=== PATIENT | female | born 1985 | race Caucasian/White ===

== ENCOUNTER → 2018-04-05 10:14 | Outpatient (CLI) | payer OTHER, SELFPAY ==
[2018-04-10 12:44] LABS: HPV HC, High Risk Negative (Negative)
== END ==
PROVIDERS: Visit Provider Obstetrics & Gynecology
DX: Z12.4 Encounter for screening for malignant neoplasm of cervix (principal)
CPT/HCPCS: 87624; 88175; G0145

== ENCOUNTER 2018-07-07 02:01 | Emergency (ER) | payer OTHER, SELFPAY ==
[2018-07-07 02:02] VITALS: BP 133/79; PULSE 99; RESP 16; TEMP 36.9; O2SAT 100; BMI 23.8
--- NOTE | 2018-07-07 02:14 | ED.VISSUMM ---
- ER Visit Summary Date of Service: 07/07/18 Chief Complaint: Abdominal pain with nausea, vomiting and diarrhea History of Present Illness: The patient is a 32 F history of migraines and kidney stones. Prior C-sections. Patient states she is had diarrhea for a week. Around 4:00 Sunday afternoon started having lower abdominal cramping primarily right-sided and right flank with associated nausea and vomiting. No dysuria. No hematuria. She denies any vaginal bleeding or discharge. Unsure of her last menstrual period since she is continuously on control pills due to issues with migraine headaches associated with her menstrual periods. She denies any fever. Prior to arrival she was treated with a liter normal saline for dehydration. Her significant other is a local examination grader. Physical Examination: Young female. No acute distress. Vital signs are stable. She is afebrile. She does not look septic or toxic. H EENT exam unremarkable. Neck nontender. Lungs clear to auscultation bilaterally. Heart regular rhythm no murmur. Abdomen is soft nondistended normal bowel sounds no peritoneal signs. She is mildly tender in the right lower quadrant. No hernias or masses. No signs of obstruction. Tenderness is below McBurney's point. She is moving all 4 extremities. Calves are nontender without edema. Back is not reproducibly tender. Neurologically she is awake alert with no focal motor deficits. Test Results: CBC shows a slightly elevated white count of 12.9. Normal hemoglobin. Letter lites unremarkable normal creatinine and gap. UA normal no signs of infection. Serum test negative. CT abdomen and pelvis with IV contrast was read as normal. Read by the radiologist reviewed by me. No kidney stones seen. The appendix was seen and was normal. Emergency Department Course and Treatment: Patient treated with a liter normal saline and IV Phenergan for her nausea. Multiple repeat exams patient is doing well. She was treated with IV Toradol for her discomfort. At 040 7 AM she is doing well her abdomen is benign. We went over all test results and they are comfortable being discharged home. Treatment Plan: Fluids and rest. Tylenol and Motrin for pain. Zofran as needed for nausea. Imodium for the diarrhea. Follow-up if not improving. Disposition: Discharge Impression: Acute abdominal pain of uncertain etiology Diarrhea This note was generated with [employer] dictation software. It may contain incorrect words, spelling, and punctuation that were not noted in review of the chart prior to signing ED Disposition - Plan for ED Patient: Referrals: [facility],Out of [NON-STAFF] -
[2018-07-07] MEDS: proMETHazine 25 MG/ML Syringe 12.5 MG IV (02:27)
[2018-07-07] MEDS: 0.9% Normal Saline 1,000 ML 999 ML IV (02:27)
[2018-07-07 02:33] LABS: Bacteria 0 SEEN /hpf (None Seen); Red Blood Cells-Urine 0 SEEN /hpf (0-5)
[2018-07-07 02:36] LABS: Internal QC Validated? YES +Cl - CLEAR BKGD; Pregnancy, Serum, hCG Quali. NEGATIVE Negative
[2018-07-07 02:37] LABS: Absolute Lymphocyte Count 0.55 X10^3/ul (0.83-4.51); Absolute Neutrophil Count 11.8 X10^3/uL (2.0-7.7); Basophil# 0.01 X10^3/uL; Basophil% 0.1 % (0-1); Eosinophil# 0.02 X10^3/uL; Eosinophils% 0.2 % (0-5); Hematocrit 38.3 % (37-47); Hemoglobin 13.1 g/dl (12.0-15.0); Lymphocyte # 0.55 X10^3/ul (4.0); Lymphocyte % 4.3 % (19-41); Mean Corp Hgb Conc 34.2 g/gl (32-36); Mean Corpuscular Hgb 29.8 pg (27.0-32.0); Mean Corpuscular Volume 87.2 fL (81-99); Mean Platelet Vol. 10.1 fl (6.2-12.0); Monocyte# 0.52 X10^3/uL; Neutrophil # 11.75 X10^3/uL (2.7-7.7); Neutrophil % 91.3 % (47-70); Platelet Count 263 K/mm3 (150-450); RBC Distribution Width CV 14.6 % (11.6-14.6); RBC Distribution Width SD 47.3 fl (35.1-43.9); Red Blood Count 4.39 M/mm3 (4.2-5.4); White Blood Count 12.9 K/mm3 (4.4-11.0)
[2018-07-07 02:40] LABS: Anion Gap 9 (5-15); BUN 17 mg/dL (7-18); BUN/Creat Ratio 17.3 RATIO (10-20); Calcium,Total 8.3 mg/dL (8.5-10.1); Chloride 109 mmol/L (98-107); Creatinine, Serum 0.98 mg/dL (0.55-1.02); EST Glomerular Filtration Rate 69 mL/min (>60); Est Glom Filt Rate - Afr Amer 83 mL/min (>60); Estimated Creatinine Clearance 66.91 ml/min; Glucose 126 mg/dL (74-106); Potassium 3.8 mmol/L (3.5-5.1); Sodium Level 140 mmol/L (136-145)
[2018-07-07 02:41] LABS: Differential Indicated SCAN CRITERIA MET; POSITIVE COUNT NO; POSITIVE DIFFERENTIAL YES; POSITIVE MORPHOLOGY NO
--- NOTE | 2018-07-07 02:47 | CT_ITS ---
STUDY: CT ABDOMEN AND PELVIS WITH CONTRAST REASON FOR EXAM: Female, 32 years old. RIGHT lower quadrant abdominal pain RADIATION DOSAGE (If Supplied By Facility): CTDIvol = ( 9.22 ) mGy, DLP = ( 388.35 ) mGycm TECHNIQUE: Transaxial images were obtained from the dome of the diaphragm to the symphysis pubis without oral contrast. 100 IV Isovue 300 was administered. Sagittal and coronal images were reconstructed. Individualized dose optimization techniques were used for this CT. COMPARISON: None. FINDINGS: The visualized lung bases are unremarkable. The visualized portions of the heart are within normal limits. Normal liver. Normal gallbladder and extrahepatic biliary system. Normal spleen. Normal pancreas. Normal bilateral adrenal glands. Normal right kidney. Normal left kidney. Normal visualized stomach. Normal small intestine. Normal colon. The appendix is visualized and appears normal. Normal abdominal aorta. Normal inferior vena cava. Normal retroperitoneum. Normal urinary bladder. Uterus and ovaries are unremarkable. There is NO ascites or free air, abscess or adenopathy. Normal abdominal wall. Normal osseous structures. CT/Abdomen/Pelvis W IV Cont ONLY IMPRESSION: Normal enhanced CT of the abdomen and pelvis. Electronically Signed: Elliott Gee MD at 4:04 EDT , Service support ,
[2018-07-07 02:48] LABS: Color, Urine Yellow (Yellow); Glucose, Dipstick Normal (Normal); Leukocyte Esterase-Dipstick 25 /ul (Negative); Nitrite-Dipstick Negative (Negative); Occult Blood-Urine Negative /ul (Negative); Protein-Dipstick 15 mg/dl (Negative); Urine Bilirubin Dipstick Negative (Negative); Urine Clarity Clear (Clear); Urine Urobilinogen Normal (Normal)
[2018-07-07 02:51] LABS: Ketone-Dipstick 150 mg/dl (Negative)
[2018-07-07 02:52] LABS: Mucous, Urine 2+ /hpf (<or=2+); Squamous Epithelial Cells - UA 10-25 SEEN /hpf (5-10); White Blood Cells 0-5 SEEN /hpf (0-5)
[2018-07-07 02:54] LABS: Differential Comment SCANNED
[2018-07-07] MEDS: Ketorolac 30 MG/ML Syringe IV (03:25)
--- NOTE | 2018-07-07 04:11 | ED.DEP ---
ED Disposition - Plan for ED Patient: Disposition: Home or Assisted Living Instructions: ED Abdominal Pain Unkn Cause Prescriptions: Ondansetron [Zofran Odt] 4 mg PO Q8H PRN PRN #7 tab PRN Reason: Nausea Referrals: [facility],Out of [NON-STAFF] - 3-5 Days if not improving Additional Instructions: Zofran as needed for nausea. Tylenol Motrin for pain. Your labs and CAT scan were unremarkable. Follow-up with your doctor if not improving.
[2018-07-07 04:19] VITALS: BP 96/50; PULSE 89; RESP 16; O2SAT 98
[2018-07-07] MEDS: Ondansetron ODT 4 MG Tablet PO (04:20)
== END 2018-07-07 04:23 | disposition home or self-care (01) ==
PROVIDERS: Emergency Provider Emergency Medicine
DX: R10.31 Right lower quadrant pain (principal); R19.7 Diarrhea, unspecified; R11.2 Nausea with vomiting, unspecified
CPT/HCPCS: 74177; 80048; 81001; 84703; 85025; 96361; 96374; 96375; 99283; J7030; Q9967; A4216

== ENCOUNTER 2018-10-23 19:39 | Emergency (ER) | payer OTHER, SELFPAY ==
[2018-10-23 19:41] VITALS: BP 134/74; PULSE 90; RESP 18; TEMP 36.6; O2SAT 98; BMI 23.8
--- NOTE | 2018-10-23 19:43 | RAD_ITS ---
STUDY: X-RAY - LEFT FOOT CLINICAL: Female, 33 years old. Trauma TECHNIQUE: 3 view(s) of the foot. COMPARISON: None. FINDINGS: Normal talus, calcaneus, and tarsal bones. Normal visualized subtalar, talonavicular, calcaneocuboid, tarsal and tarsometatarsal articulations. There is again noted a nondisplaced Reich fracture of the fifth metatarsal base. Normal metatarsophalangeal joint of the great toe. Normal tibial and fibular sesamoid bones. Normal interphalangeal joint of the great toe. Normal phalanges of the great toe. Normal second through fifth metatarsophalangeal joints. Normal interphalangeal joints and phalanges of the lesser toes. The soft tissue structures are unremarkable. RAD/Foot min 3 Views IMPRESSION: Nondisplaced Reich fracture of the fifth metatarsal base. Electronically Signed: Salazar Philip MD at 20:27 EDT , Service support ,
--- NOTE | 2018-10-23 19:43 | RAD_ITS ---
STUDY: X-RAY - LEFT ANKLE REASON FOR EXAM: Female, 33 years old. Trauma TECHNIQUE: 3 view(s) of the ankle. COMPARISON: None. FINDINGS: Normal visualized distal tibia and fibula. Normal medial and lateral malleoli. Normal tibiotalar articulation and ankle mortise. Normal visualized talus and calcaneus. The visualized subtalar, talonavicular, calcaneocuboid and tarsal articulations are normal. There is a nondisplaced Reich fracture of the fifth metatarsal base. The soft tissue structures are unremarkable. RAD/Ankle min 3 Views IMPRESSION: Nondisplaced Reich fracture of the fifth metatarsal base. The osseous structures and articular surfaces of the left ankle itself appear within normal limits. Electronically Signed: Salazar Philip MD at 20:26 EDT , Service support ,
--- NOTE | 2018-10-23 20:40 | ED.DCSUM_ITS ---
- ER Visit Summary Date of Service: 10/23/18 Chief Complaint: LEft foot injury History of Present Illness: The patient is a 33 F who injured her left lateral foot getting off a horse. Physical Examination: Tender to palpation to left lateral foot. Skin intact. Neurovascular intact distally. Test Results: Reich fracture on x-ray. Emergency Department Course and Treatment: Patient has a fracture on x-ray. Follow-up with podiatry. Rest, ice, elevate. Naproxen. Crutches, boot. Treatment Plan: As above Disposition: Discharge Impression: 1. Left foot Reich fracture This note was generated with [employer] dictation software. It may contain incorrect words, spelling, and punctuation that were not noted in review of the chart prior to signing ED Disposition - Plan for ED Patient: Disposition: Home or Assisted Living Instructions: FRACTURE, Foot Prescriptions: Naproxen [Naprosyn] 500 mg PO BID PRN #20 tab Prescription Printed Referrals: Addy Perez DPM [STAFF PHYSICIAN] -
--- NOTE | 2018-10-23 20:40 | ED.DEP ---
ED Disposition - Plan for ED Patient: Instructions: FRACTURE, Foot Prescriptions: Naproxen [Naprosyn] 500 mg PO BID PRN #20 tab Prescription Printed Referrals: Addy Perez DPM [STAFF PHYSICIAN] -
[2018-10-23] MEDS: Naproxen 500 MG Tablet PO (21:14)
[2018-10-23 21:15] VITALS: RESP 16
== END 2018-10-23 21:15 | disposition home or self-care (01) ==
PROVIDERS: Emergency Provider Emergency Medicine
DX: S92.355A Nondisplaced fracture of fifth metatarsal bone, left foot, initial encounter for closed fracture (principal); V80.010A Animal-rider injured by fall from or being thrown from horse in noncollision accident, initial encounter; Y93.52 Activity, horseback riding
CPT/HCPCS: 73610; 73630; 99284

== ENCOUNTER → 2018-10-29 13:46 | Outpatient (CLI) | payer OTHER, SELFPAY ==
[2018-10-23 19:41] VITALS: BMI 23.8
--- NOTE | 2018-10-29 14:00 | CT_ITS ---
STUDY: CT OF THE FOOT WITHOUT CONTRAST, LEFT REASON FOR EXAM: Female, 33 years old. horse fell on foot, fracture RADIATION DOSAGE (If Supplied By Facility): CTDIvol = ( 6.23 ) mGy, DLP = ( 118.93 ) mGycm. Individualized dose optimization techniques were used for this CT.? TECHNIQUE: Axial CT images of the [ left foot ] were performed without contrast followed by sagittal and coronal reconstructions. COMPARISON: Radiographs 10/23/2018 FINDINGS: A nondisplaced fracture of the base of the fifth metatarsal is present. No other fractures are seen. No dislocations. Ankle mortise is intact. Talar dome is normal in shape. No well-defined hematomas or fluid collections are seen. Visualized tendons are grossly intact by CT. CT/Extremity Lower without Contra IMPRESSION: A nondisplaced fracture of the base of the fifth metatarsal is present. Electronically Signed: Kevin Collins MD at 17:43 EDT Tel , Service support ,
== END ==
PROVIDERS: Referring Provider Podiatrist Foot & Ankle Surgery; Visit Provider Podiatrist Foot & Ankle Surgery
DX: S92.355A Nondisplaced fracture of fifth metatarsal bone, left foot, initial encounter for closed fracture (principal); W55.12XA Struck by horse, initial encounter
CPT/HCPCS: 73700

== ENCOUNTER 2018-10-31 05:58 | Day surgery (SDC) | payer OTHER, SELFPAY ==
[2018-10-29 15:03] LABS: Hematocrit 38.4 % (37-47); Hemoglobin 12.8 g/dL (12.0-15.0); Mean Corp Hgb Conc 33.3 g/dL (32-36); Mean Corpuscular Hgb 30.5 pg (27.0-32.0); Mean Corpuscular Volume 91.6 fL (81-99); Mean Platelet Vol. 10.4 fl (6.2-12.0); Platelet Count 326 K/mm3 (150-450); RBC Distribution Width CV 12.7 % (11.6-14.6); RBC Distribution Width SD 42.3 fl (35.1-43.9); Red Blood Count 4.19 M/mm3 (4.2-5.4); White Blood Count 9.7 K/mm3 (4.4-11.0)
[2018-10-29 15:10] LABS: Partial Thromboplast Time 30.9 Seconds (24.1-36.2)
[2018-10-29 15:23] LABS: Anion Gap 8 (5-15); BUN 12 mg/dL (7-18); BUN/Creat Ratio 13.9 RATIO (10-20); Calcium,Total 8.7 mg/dL (8.5-10.1); Chloride 103 mmol/L (98-107); Creatinine, Serum 0.86 mg/dL (0.55-1.02); EST Glomerular Filtration Rate 80 mL/min (>60); Est Glom Filt Rate - Afr Amer 96 mL/min (>60); Glucose 117 mg/dL (74-106); Potassium 3.5 mmol/L (3.5-5.1); Sodium Level 138 mmol/L (136-145)
[2018-10-31] VITALS (9 sets, daily range): BP systolic 103–121; BP diastolic 63–74; PULSE 65–77; RESP 16; TEMP 36.7–36.9; O2SAT 95–97; BMI 25.6
[2018-10-31 06:24] LABS: Internal QC Validated? YES +Cl - CLEAR BKGD; Pregnancy, Urine Negative Negative
[2018-10-31] MEDS: Lactated Ringers 1,000 ML 100 ML IV (06:35)
--- NOTE | 2018-10-31 07:00 | RAD_ITS ---
STUDY: X-RAY - LEFT FOOT CLINICAL: Female, 33 years old. Intraoperative imaging provided for screw fixation of the fracture at the base of the fifth metatarsal. TECHNIQUE: 21 coned-down intraoperative view(s) of the foot. COMPARISON: Comparison is made with prior study dated October 23, 2018. FINDINGS: Intraoperative imaging provided for screw fixation of the nondisplaced fracture at the base of the fifth metatarsal. Soft tissue swelling. RAD/Foot min 3 Views IMPRESSION: Intraoperative imaging provided for screw fixation of the transverse fracture at the base of the fifth metatarsal. Soft tissue swelling. Electronically Signed: Shadi Jeffery, at 15:45 EDT , Service support ,
[2018-10-31] MEDS: Bupivacaine Mpf 0.5% 30 ML VIAL (07:39)
--- NOTE | 2018-10-31 08:50 | RAD_ITS ---
STUDY: X-RAY - LEFT FOOT CLINICAL: Female, 33 years old. Reduction of the fracture at the base of the left fifth metatarsal. TECHNIQUE: 3 view(s) of the foot. COMPARISON: Comparison is made with prior study dated October 23, 2018. FINDINGS: Normal talus, calcaneus, and tarsal bones. Normal visualized subtalar, talonavicular, calcaneocuboid, tarsal and tarsometatarsal articulations. The patient is status post screw fixation of the fracture at the base of the fifth metatarsal. There is satisfactory reduction. Normal metatarsophalangeal joint of the great toe. Normal tibial and fibular sesamoid bones. Normal interphalangeal joint of the great toe. Normal phalanges of the great toe. Normal second through fifth metatarsophalangeal joints. Normal interphalangeal joints and phalanges of the lesser toes. Soft tissue swelling. RAD/Foot min 3 Views IMPRESSION: Status post screw fixation of the nondisplaced transverse fracture at the base of the fifth metatarsal. There is good alignment. Electronically Signed: Shadi Jeffery, at 15:43 EDT , Service support ,
--- NOTE | 2018-10-31 08:53 | PCM.DC.ORTHO ---
Discharge Diet: Light diet - advance as tolerated Discharge Activity: May Not Drive, May not drive while taking narcotic pain medications., May Not Shower, Use Crutches May shower in (days): 14 Ice area for (Minutes): 20 Weight Bearing Status: No weight bearing Keep extremity elevated above heart level: Left Leg - left foot above level of heart as much as possible Additional Activity Instructions:: ice behind left knee 20 minutes on 20 minutes off every hour while awake for next 7 days. Take medications as prescribed. Do not put any weight on left foot. Elevate left foot above level of heart as much as possible. Keep bandage clean, dry and intact. Do not get dressing wet. Sponge bath for the next week to make sure dressing doesn't get wet. Protect dressing with plastic bag/tape or cast protector when bathing. Call your doctor if your incision/area has: Increased Pain/ Swelling Call your doctor if you observe: Fever of 101 or Higher, Coldness, Increased Pain, Numbness or Tingling, Change in Color, Shortness of breath, Dizziness, Fainting spells, Chest pain, Calf discomfort, Uncontrolled pain Cleanse incision/area with: Keep Dressing Clean & Dry Allergies/Adverse Reactions: Allergies amoxicillin [Amoxicillin] Allergy (Verified 10/29/18 08:41) Anaphylaxis ciprofloxacin [From Cipro] Allergy (Verified 10/29/18 08:41) Hives ciprofloxacin HCl [From Cipro] Allergy (Verified 10/29/18 08:41) Hives codeine Allergy (Verified 10/29/18 08:41) Hives meperidine HCl [From Demerol] Allergy (Verified 10/29/18 08:41) Hives Penicillins Allergy (Verified 10/29/18 08:41) Anaphylaxis sulfamethoxazole [From Bactrim] Adverse Reaction (Verified 10/29/18 08:41) HEADACHE sumatriptan [From Imitrex] Adverse Reaction (Verified 10/29/18 08:41) Other tramadol Adverse Reaction (Verified 10/29/18 08:41) HEADACHE trimethoprim [From Bactrim] Adverse Reaction (Verified 10/29/18 08:41) HEADACHE Medications to take at Discharge Escitalopram Oxalate 10 mg PO DAILY 07/07/18 Propranolol HCl [Propranolol HCl ER] 80 mg PO DAILY 07/07/18 Ethinyl Estradiol/Drospirenone [Drospirenone-Ee 3-0.03 mg Tab] 1 ea PO DAILY 10/29/18 Orders to be completed after discharge: ,Urine Time Frame: 10/31/18, Facility: [facility], Location: Laboratory Primary Care Physician: Bart Pandya MD [Primary Care Provider] - Test Results: Test results from this visit will be discussed in further detail at your follow-up appointment, if applicable. Please Follow Up With: Carlitos Fall DPM When: In one week
--- NOTE | 2018-10-31 09:04 | PCM.OPRPT ---
Problem List (1) Nondisplaced fracture of fifth left metatarsal bone with routine healing Status: Acute Qualifiers: Fracture type: closed Qualified Code(s): S92.355D - Nondisplaced fracture of fifth metatarsal bone, left foot, subsequent encounter for fracture with routine healing Report of Operation Date of Procedure: 10/31/18 Pre-Operative Diagnosis: Left foot fifth metatarsal fracture, closed. Reich fracture left foot Post-Operative Diagnosis: Same as preoperative Surgery/Procedure Performed:: Left foot open reduction with internal fixation of fifth metatarsal Description of Surgical Findings:: Consistent with diagnosis. Reduction of fracture fragments achieved with internal fixation. space and missile operations: Willow Hodge Type of Anesthesia:: Local MAC - MAC with a left ankle block Anesthesiologist: Arielle Moseley Specimen's removed: None Estimated Blood Loss (mL): 1mL Description of Procedure: Materials: Idania 4-0 by 42 mm intramedullary screw Injectables: 3mLof 1% lidocaine plain Pathology: None Stasis: Pneumatic calf tourniquet placed to level left calf at 250 mmHg for 34 minutes Condition: Stable Before the patient was brought to the operating room, all the risks, benefits, possible outcomes, possible complications of the procedure were discussed with the patient the patient has been. All the patient's questions were answered to her satisfaction and all of her concerns were addressed. No guarantees were made to the outcome of the procedure. Patient and patient's understood all aspects of the procedure and consent was then signed by the patient. Patient was then brought to the having room and placed on the operating table in the supine position. After timeout, once anesthesia was obtained, 20 mL of 0.5% Marcaine plain which should be an ankle block fashion to the left ankle. Next a well-padded pneumatic calf tourniquet was placed to the level of the left calf. Next an ipsilateral hip bump was placed underneath the left hip. The left foot ankle leg were then scrubbed prepped and draped in the usual sterile manner. Elevation of the left lower extremity was 5 by examination via Esmarch inflation and pneumatic calf tourniquet to 250 mmHg. Attention was then directed to the lateral aspect of the fifth metatarsal. At this time the bony landmarks were identified and marked. Next radiographic evaluation was used to determine the center of the medullary canal and the base of the fifth metatarsal through multiple planes. All these planes were marked on the patient. Once this was identified the K wire guide was placed into the base of the fifth metatarsal. Lie radiographic evaluation was used to insert the K wire through the base of the fifth metatarsal into the medullary canal. Multiple angles for radiographic evaluation were performed to make sure that this K wire was centered in the medullary canal through the center of the fifth metatarsal base of the left foot. Once adequate positioning of this K wire was performed and #15 blade was used to perform a linear longitudinal incision starting on the lateral aspect of the dorsal base of the fifth metatarsal extending posteriorly approximately 1.5 cm. Next 3 mL of 1% lidocaine plain was distributed in a proximal block fashion in the area the incision site. Blunt dissection was continued down deep to the level of the base of the fifth metatarsal. At this time the K wire was used to perform drilling and tapping of the fifth metatarsal. After measuring this K wire a size 4 -)x 42 mm [place] cannulated intramedullary screw was placed over the K wire in standard AO fixation. Of note during exertion of the screw was adequate compression of the fracture fragment site. Furthermore no shifting of any of the fragments occurred during insertion of the screw. Once the screw was fully inserted the K wire was then removed. Radio graphs evaluation was performed in multiple planes and it was determined that the fracture of the fifth metatarsal of the left foot was reduced with the internal fixation and that the internal fixation was contained within the intramedullary canal of the fifth metatarsal of the left foot. Furthermore the radiographs revealed that the fracture was compressed. The surgical site was then irrigated with copious amounts of normal sterile saline. The deeper soft tissues were reapproximated and coapted utilizing 3-0 Vicryl. The sub-cutaneous tissue was reapproximated and coapted utilizing 4-0 Monocryl. The skin was approximated coapted using 3-0 nylon in a simple interrupted fashion. The surgical site was then dressed with Betadine soaked gauze, and a dry sterile dressing consisting of 4 x 4 gauze wrapped with Kerlix. At this time the pneumatic calf tourniquet was then released and a prompt hyperemic response was noted to the entirety of the left lower extremity and the toes. At this time webril was wrapped in the metatarsal heads extending proximally into a level just distal to the tibial tuberosity. A posterior splint was fashioned to the left lower extremity and was adhered to the left lower extremity utilizing Yan bandages. Care was taken to make sure that the foot and ankle were held in a neutral position while the posterior splint was drying. The patient tolerated the anesthesia and the procedure well and was transported to the PACU with vital signs stable and neurovascular status intact to left lower extremity. After period of postoperative monitoring patient will be discharged home with written and oral instructions for wound care and follow-up. - Complications None - Admit VTE Documentation VTE Present on Admission: No VTE Mechan Device Prophylaxis: SCD's VTE Pharm Prophylaxis ordered?: Yes
[2018-10-31] MEDS: traMADol 50 MG Tablet PO (09:30)
== END 2018-10-31 10:30 | disposition home or self-care (01) ==
LOC: SDC 06:03 → AC 06:09
PROVIDERS: Anesthesiology; Family Provider Family Medicine; PCP Family Medicine; Referring Provider Podiatrist Foot & Ankle Surgery; Visit Provider Podiatrist Foot & Ankle Surgery
PROC: (CPT 28485; principal; 2018-10-31 07:15)
DX: S92.355A Nondisplaced fracture of fifth metatarsal bone, left foot, initial encounter for closed fracture (principal); W19.XXXA Unspecified fall, initial encounter; Y93.9 Activity, unspecified; Y92.9 Unspecified place or not applicable
CPT/HCPCS: 01480; 28485; 36415; 73630; 76000; 80048; 81025; 85027; 85610; 85730; C1713; J7120; J2405

== ENCOUNTER → 2018-11-07 17:03 | Outpatient (CLI) | payer OTHER, SELFPAY ==
[2018-10-23 19:41] VITALS: BMI 23.8
[2018-10-31 06:17] VITALS: BMI 25.6
--- NOTE | 2018-11-07 17:21 | MRI_ITS ---
STUDY: MRI BRAIN WITH AND WITHOUT CONTRAST REASON FOR EXAM: Female, 33 years old. Worsening migraines. TECHNIQUE: Standardized multiplanar fat and water weighted pulse sequences were obtained. IV Dotarem 12 was administered for the contrast portion of the examination. COMPARISON: None. FINDINGS: Normal size of the ventricles and extra-axial spaces for the patient's age. Normal white matter tracts of the supratentorial brain. Normal bilateral basal ganglia. Normal thalami. There is no extra-axial fluid accumulation. Normal flow voids within the major intracranial circulation suggesting patency by spin echo criteria. Normal venous enhancement. There is no enhancing intra-axial or extra-axial abnormality. Normal sella turcica, pituitary gland, infundibular stalk, optic chiasm and hypothalamus. Normal tectal plate and pineal gland. Normal midbrain, tiffanie and medulla. Normal cerebellum. Normal basal cisterns. Normal bilateral temporal bones. Normal bilateral internal auditory canals. No demonstrated orbital abnormality, within the constraints of a routine brain study. Normal visualized paranasal sinuses. Normal calvarium and skull base. Normal visualized soft tissue structures. Normal visualized upper cervical spine. MRI/Brain W/WO Contrast IMPRESSION: Normal unenhanced and enhanced MRI of the brain. Electronically Signed: Salazar Funez, at 20:04 EDT Tel , Service support ,
== END ==
LOC: MRI 17:03
PROVIDERS: Family Provider Family Medicine; PCP Family Medicine; Referring Provider Family Medicine; Visit Provider Family Medicine
DX: R20.8 Other disturbances of skin sensation (principal)
CPT/HCPCS: 70553; A9575

== ENCOUNTER 2019-09-03 16:22 | Emergency (ER) | payer OTHER, SELFPAY ==
[2018-10-31 06:17] VITALS: BMI 25.6
[2019-09-03 16:22] VITALS: BP 174/102; PULSE 128; RESP 18; TEMP 35.5; O2SAT 93; BMI 25.2
--- NOTE | 2019-09-03 17:19 | ED.DCSUM_ITS ---
History of Present Illness Chief Complaint: Abd Pain Informant: Patient Narrative: Patient presents with right flank pain. She states she has had this on and off for a few days. She states it is achy and sharp. It is gotten worse and now today she was getting sweaty and nauseous when the pain came. She has significant history of kidney stones and she states she has never passed 1 spontaneously. She always has to get lithotripsy. She denies urinary complaints. She denies fever. Past Medical History - Allergies and Home Meds Allergies/Adverse Reactions: Allergies amoxicillin [Amoxicillin] Allergy (Verified 09/03/19 16:26) Anaphylaxis ciprofloxacin [From Cipro] Allergy (Verified 09/03/19 16:26) Hives ciprofloxacin HCl [From Cipro] Allergy (Verified 09/03/19 16:26) Hives codeine Allergy (Verified 09/03/19 16:26) Hives meperidine HCl [From Demerol] Allergy (Verified 09/03/19 16:26) Hives Penicillins Allergy (Verified 09/03/19 16:26) Anaphylaxis sulfamethoxazole [From Bactrim] Adverse Reaction (Verified 09/03/19 16:26) HEADACHE sumatriptan [From Imitrex] Adverse Reaction (Verified 09/03/19 16:26) Other tramadol Adverse Reaction (Verified 09/03/19 16:26) HEADACHE trimethoprim [From Bactrim] Adverse Reaction (Verified 09/03/19 16:26) HEADACHE Primary Care Physician: Bart Pandya MD [Primary Care Provider] - Prior records reviewed: Yes Surgical History: - - lithotripsy Lives: With Family Smoking Status: Never smoker Alcohol: None Drugs: None Review of Systems General: Denies: Chills, Fever Eyes: Reports: Visual changes - left ENT: Denies: Rhinorrhea, Sore throat Cardiovascular: Denies: Chest pain, Palpitations Respiratory: Denies: Dyspnea, Cough, Dyspnea on exertion Gastrointestinal: Reports: Nausea Genitourinary: Denies: Dysuria, Hematuria Musculoskeletal: Reports: Back pain - Right flank pain. Denies: Extremity Pain Skin: Denies: Rash, Wounds Neurological: Denies: Headache Psych: Denies: Depression, Anxiety Physical Exam Vital Signs/Narrative: Vital Signs Temp Pulse Resp BP Pulse Ox 09/03/19 16:22 96 F L 128 H 18 174/102 H 93 Inital Vital Signs reviewed: Yes General: Well nourished, No Acute Distress Head: Normocephalic, Atraumatic Eyes: Perrl, EOMI Cardiovascular: Regular rate, Regular rhythm Respiratory: No distress Abdomen: Soft Back: CVA tenderness - Right Extremities: Nontender, No edema Skin: Normal color Neurological: Alert, Oriented x3 Psychological: Normal affect Diagnostic/Tx/Re-eval Clinical Impression(s) from Imaging Studies Abdomen/Pelvis CT 09/03/19 17:21 IMPRESSION: No acute intra-abdominal or pelvic abnormality or major interval change. Electronically Signed: Phuc MorganonDO at 18:18 EDT Tel [phone], Service support , Laboratory Data 09/03/19 09/03/19 09/03/19 17:27 17:27 17:27 WBC 10.8 RBC 4.28 Hgb 13.1 Hct 39.0 MCV 91.1 MCH 30.6 MCHC 33.6 RDW Std Deviation 43.0 RDW Coeff of Haley 13.1 Plt Count 339 MPV 10.2 Immature Gran % (Auto) 0.400 Neut % (Auto) 77.9 H Lymph % (Auto) 16.5 L [place] % (Auto) 4.4 Eos % (Auto) 0.5 Baso % (Auto) 0.3 Absolute Neuts (auto) 8.4 H Absolute Lymphs (auto) 1.78 Nucleated RBC % 0 Sodium 137 Potassium 4.0 Chloride 106 Carbon Dioxide 25.0 Anion Gap 6 BUN 11 Creatinine 1.05 H Estim Creat Clear Calc 61.27 Est GFR (MDRD) Af Amer 76 Est GFR (MDRD) Non-Af 63 BUN/Creatinine Ratio 10.5 Glucose 128 H Calcium 9.2 Serum , Qual NEGATIVE Urine Color Urine Clarity Urine pH Ur Specific [place] Urine Protein Urine Glucose (UA) Urine Ketones Urine Occult Blood Urine Nitrite Urine Bilirubin Urine Urobilinogen Ur Leukocyte Esterase Urine RBC Urine WBC Ur Squamous Epith Cells Urine Bacteria Urine Mucus 09/03/19 17:42 WBC RBC Hgb Hct MCV MCH MCHC RDW Std Deviation RDW Coeff of Haley Plt Count MPV Immature Gran % (Auto) Neut % (Auto) Lymph % (Auto) [place] % (Auto) Eos % (Auto) Baso % (Auto) Absolute Neuts (auto) Absolute Lymphs (auto) Nucleated RBC % Sodium Potassium Chloride Carbon Dioxide Anion Gap BUN Creatinine Estim Creat Clear Calc Est GFR (MDRD) Af Amer Est GFR (MDRD) Non-Af BUN/Creatinine Ratio Glucose Calcium Serum , Qual Urine Color Yellow Urine Clarity Clear Urine pH 6.0 Ur Specific [place] 1.020 Urine Protein Negative Urine Glucose (UA) Normal Urine Ketones 5 H Urine Occult Blood Negative Urine Nitrite Negative Urine Bilirubin Negative Urine Urobilinogen Normal Ur Leukocyte Esterase 25 H Urine RBC 0 SEEN Urine WBC 0-5 SEEN Ur Squamous Epith Cells 0 SEEN Urine Bacteria RARE Urine Mucus 0 SEEN - Medical Decision Making Presents with right flank pain. She is concerned she has a kidney stone. She has most concerned because she is always had to have procedures to remove the stones. She is given morphine and Toradol and her pain improved. She is given IV fluids. Her urinalysis shows some leukocyte Estrace her CT does not show a kidney stone. Given that she has having flank pain and CVA tenderness I will treat her for pyelonephritis. Urine sent for culture. She is given return precautions. Impression #1 Pyelonephritis ED Disposition - Plan for ED Patient: Disposition: Home or Assisted Living Diagnosis: UTI (urinary tract infection), Flank pain, Pyelonephritis Instructions: ED Pyelonephritis Female Adult, ED CYSTITIS Female Adult Prescriptions: Nitrofurantoin Macrocrystals [Macrobid] 100 mg PO Q12 #14 cap Prescription Printed Ondansetron [Ondansetron Odt] 4 mg PO Q6H PRN PRN #14 tab.rapdis PRN Reason: Nausea Prescription Printed Referrals: Bart Pandya MD [Primary Care Provider] -
--- NOTE | 2019-09-03 17:21 | CT_ITS ---
STUDY: CT ABDOMEN AND PELVIS WITHOUT CONTRAST REASON FOR EXAM: Female, 34 years old. Abdominal pain for 3 days. Nausea. RADIATION DOSAGE (If Supplied By Facility): CTDIvol = ( 6.15 ) mGy, DLP = ( 304.38 ) mGycm TECHNIQUE: Transaxial images were obtained from the dome of the diaphragm to the symphysis pubis without oral contrast, and without intravenous contrast. Sagittal and coronal images were reconstructed. Individualized dose optimization techniques were used for this CT. COMPARISON: July 07, 2018. FINDINGS: The visualized lung bases are unremarkable. The visualized portions of the heart are within normal limits. Normal liver. Normal gallbladder and extrahepatic biliary system. Normal spleen. Normal pancreas. Normal bilateral adrenal glands. Normal right kidney. Normal left kidney. Normal visualized stomach. Normal small intestine. Normal colon. The appendix is visualized and appears normal. Normal abdominal aorta. Normal inferior vena cava. Normal retroperitoneum. Normal urinary bladder. Normal retroverted uterus. No adnexal mass. There is no pelvic lymphadenopathy. No free air or free fluid is seen within the peritoneal cavity. Normal abdominal wall. Normal osseous structures. CT/Abdomen/Pelvis without Cont IMPRESSION: No acute intra-abdominal or pelvic abnormality or major interval change. Electronically Signed: Phuc Fernandez DO at 18:18 EDT Tel [phone], Service support ,
[2019-09-03 17:35] LABS: Absolute Lymphocyte Count 1.78 X10^3/uL (0.83-4.51); Absolute Neutrophil Count 8.4 X10^3/uL (2.0-7.7); Basophil# 0.03 X10^3/uL; Basophil% 0.3 % (0-1); Eosinophil# 0.05 X10^3/uL; Eosinophils% 0.5 % (0-5); Hemoglobin 13.1 g/dL (12.0-15.0); Lymphocyte # 1.78 X10^3/ul (4.0); Lymphocyte % 16.5 % (19-41); Mean Corp Hgb Conc 33.6 g/dL (32-36); Mean Corpuscular Hgb 30.6 pg (27.0-32.0); Mean Corpuscular Volume 91.1 fL (81-99); Mean Platelet Vol. 10.2 fl (6.2-12.0); Monocyte# 0.47 X10^3/uL; Monocyte% 4.4 % (0-10); NRBC Flagged by Analyzer 0 % (0-5); Neutrophil # 8.39 X10^3/uL (2.7-7.7); Neutrophil % 77.9 % (47-70); Platelet Count 339 K/mm3 (150-450); RBC Distribution Width CV 13.1 % (11.6-14.6); Red Blood Count 4.28 M/mm3 (4.2-5.4); White Blood Count 10.8 K/mm3 (4.4-11.0)
[2019-09-03] MEDS: Ondansetron 4 MG/2 ML Vial IV (17:35)
[2019-09-03] MEDS: Morphine 4 MG/ML Syringe IV (17:35)
[2019-09-03] MEDS: Ketorolac 30 MG/ML Syringe IV (17:35)
[2019-09-03 17:52] LABS: Anion Gap 6 (5-15); BUN 11 mg/dL (7-18); BUN/Creat Ratio 10.5 RATIO (10-20); Calcium,Total 9.2 mg/dL (8.5-10.1); Chloride 106 mmol/L (98-107); Creatinine, Serum 1.05 mg/dL (0.55-1.02); EST Glomerular Filtration Rate 63 mL/min (>60); Est Glom Filt Rate - Afr Amer 76 mL/min (>60); Estimated Creatinine Clearance 61.27 ml/min; Glucose 128 mg/dL (74-106); Sodium Level 137 mmol/L (136-145)
[2019-09-03 17:53] LABS: Internal QC Validated? YES +Cl - CLEAR BKGD; Pregnancy, Serum, hCG Quali. NEGATIVE Negative
[2019-09-03 17:55] LABS: Mucous, Urine 0 SEEN /hpf (<or=2+); Red Blood Cells-Urine 0 SEEN /hpf (0-5); Squamous Epithelial Cells - UA 0 SEEN /hpf (5-10)
[2019-09-03 17:56] LABS: Color, Urine Yellow (Yellow); Glucose, Dipstick Normal (Normal); Ketone-Dipstick 5 mg/dl (Negative); Leukocyte Esterase-Dipstick 25 /ul (Negative); Nitrite-Dipstick Negative (Negative); Occult Blood-Urine Negative /ul (Negative); Protein-Dipstick Negative (Negative); Urine Bilirubin Dipstick Negative (Negative); Urine Clarity Clear (Clear); Urine Urobilinogen Normal (Normal)
[2019-09-03 18:29] LABS: Bacteria RARE /hpf (None Seen); White Blood Cells 0-5 SEEN /hpf (0-5)
[2019-09-03] MEDS: Nitrofurantoin Macrocrystals 100 MG Capsule PO (19:21)
[2019-09-03] MEDS: Morphine 4 MG/ML Syringe IM (19:21)
[2019-09-03 19:24] VITALS: RESP 18
== END 2019-09-03 19:48 | disposition home or self-care (01) ==
PROVIDERS: Emergency Provider Student in an Organized Health Care Education/Training Program; PCP Family Medicine
DX: N39.0 Urinary tract infection, site not specified (principal); R10.9 Unspecified abdominal pain; N12 Tubulo-interstitial nephritis, not specified as acute or chronic; Z87.442 Personal history of urinary calculi
CPT/HCPCS: 74176; 80048; 81001; 84703; 85025; 87086; 96372; 96374; 96375; 99282; A4216; J2405

== ENCOUNTER → 2019-09-05 11:22 | Outpatient (CLI) | payer OTHER, SELFPAY ==
[2019-09-03 16:22] VITALS: BMI 25.2
--- NOTE | 2019-09-05 | CER_PTH ---
PATIENT: DONOVAN BURR LOC: [facility] U#:[id number] AGE/SX: 39/F ROOM: RE09/05/[address]: Dr. Natalie Dimas MD : 1985 BED: DIS: SPEC #: [id number] RECD: 09/05/19 13:01 STATUS: ALBINO RUBINA #: [id number] YOLANDA: 09/05/19 00:[address]: Natalie Zavala DEPT: SURGICAL PATHOLOGY RECD BY: Eduar Gaviria ENTERED: 09/05/19 13:01 SP TYPE: CERV OTHR DR: Dr. Bart Pandya MD Tissues: Uterine cervix, NOS Procedures: Surgery Specimen Level IV HEADER OPERATION: Cervical polyp PRE-OP DIAGNOSIS: Postcoital bleeding TISSUE SUBMITTED: Cervical polyp MICROSCOPIC DIAGNOSIS Cervical polyp, biopsy: Inflamed benign endocervical polyp. SJ:jhonathan 09/08/19 MICROSCOPIC DESCRIPTION Slides are reviewed. GROSS DESCRIPTION Received is one container labeled with the patient's name and not further designated. The specimen consists of a piece of house-pink polyp measuring 0.5 x 0.5 x 0.2 cm. Also present in the container are multiple fragments of house mucoid tissue that in aggregate measure 1.5 x 1 x 0.2 cm. The entire specimen is submitted in one cassette. / SJ:rg 09/05/19 TC:5 CPT: 37644
== END ==
PROVIDERS: PCP Family Medicine; Visit Provider Obstetrics & Gynecology
DX: N93.0 Postcoital and contact bleeding (principal)
CPT/HCPCS: 88305

== ENCOUNTER 2019-09-05 11:35 | Observation (INO) | payer OTHER, SELFPAY ==
[2019-09-05 11:48] VITALS: BMI 24.7; BMI 24.8
[2019-09-05 11:49] VITALS: BP 165/121; PULSE 107; RESP 18; TEMP 37.1; O2SAT 97
[2019-09-05 14:17] LABS: Absolute Lymphocyte Count 2.23 X10^3/uL (0.83-4.51); Absolute Neutrophil Count 7.4 X10^3/uL (2.0-7.7); Basophil# 0.02 X10^3/uL; Basophil% 0.2 % (0-1); Eosinophil# 0.06 X10^3/uL; Eosinophils% 0.6 % (0-5); Hematocrit 41.1 % (37-47); Hemoglobin 13.8 g/dL (12.0-15.0); Lymphocyte # 2.23 X10^3/ul (4.0); Lymphocyte % 21.8 % (19-41); Mean Corp Hgb Conc 33.6 g/dL (32-36); Mean Corpuscular Hgb 30.5 pg (27.0-32.0); Mean Corpuscular Volume 90.9 fL (81-99); Mean Platelet Vol. 10.2 fl (6.2-12.0); Monocyte# 0.49 X10^3/uL; Monocyte% 4.8 % (0-10); NRBC Flagged by Analyzer 0 % (0-5); Neutrophil # 7.42 X10^3/uL (2.7-7.7); Neutrophil % 72.3 % (47-70); Platelet Count 336 K/mm3 (150-450); RBC Distribution Width CV 12.9 % (11.6-14.6); RBC Distribution Width SD 42.4 fl (35.1-43.9); Red Blood Count 4.52 M/mm3 (4.2-5.4); White Blood Count 10.3 K/mm3 (4.4-11.0)
[2019-09-05] MEDS: 0.9% Saline Lock 10 ML Syringe IV ×4 (14:20→23:31)
[2019-09-05] MEDS: Morphine 4 MG/ML Syringe IV ×3 (14:20→23:31)
[2019-09-05 14:35] LABS: ALB/GLOB Ratio 0.9 RATIO (0.9-2.4); AST(SGOT) 13 U/L (15-37); Alanine Aminotransfer ALT/SGPT 16 U/L (13-56); Albumin, Serum 3.8 g/dL (3.2-5.0); Alkaline Phosphatase 73 U/L (45-117); Anion Gap 5 (5-15); BUN 11 mg/dL (7-18); BUN/Creat Ratio 14.5 RATIO (10-20); Calcium,Total 9.2 mg/dL (8.5-10.1); Chloride 105 mmol/L (98-107); Creatinine, Serum 0.76 mg/dL (0.55-1.02); EST Glomerular Filtration Rate 92 mL/min (>60); Est Glom Filt Rate - Afr Amer 111 mL/min (>60); Estimated Creatinine Clearance 84.65 ml/min; Globulin 4.2 g/dL (2.2-4.2); Glucose 83 mg/dL (74-106); Potassium 3.9 mmol/L (3.5-5.1); Sodium Level 136 mmol/L (136-145)
[2019-09-05] MEDS: Acetaminophen 325 MG Tablet 650 MG PO ×2 (15:22→18:17)
[2019-09-05] MEDS: Ketorolac 30 MG/ML Syringe IV ×2 (15:23→20:47)
--- NOTE | 2019-09-05 16:54 | PCM.HP.STD ---
Problem List (1) Pelvic inflammatory disease (PID) Status: Acute History of Present Illness Date of Admission: 09/05/19 Chief Complaint: Abdominal pain The patient is a 34 year old F admitted with PID, possible endometriosis flare. She reports 3 days of severe right lower abdominal pain sent from the office for direct admission. She was seen in the ER on 09/03/[address] A/P and started on Macrobid for possible UTI. She had no improvement of symptoms over 24-48 hours and was seen in the office earlier today. A pelvic US showed a nodule at the right utero-ovarian ligament, but otherwise was unremarkable. Patient was not a candidate for any oral outpatient regimens due to multiple medication allergies, thus she was directly admitted for IV antibiotics and pain control. Of note, she has had dull lower right lower abdominal pain for approximately 2 months prior to that at the same site. Past Medical History Past Medical History (Chronic Problems): Chronic Problems (Last Updated 09/05/19 @ 17:[address] Natalie Dimas MD) Heart palpitations (Chronic) Medical History: Medical History (Last Updated 09/05/19 @ 17:[address] Natalie Dimas MD) Heart palpitations (Chronic) R00.2 delivery delivered O82 2012, 2015 Migraines G43.909 Seasonal allergies J30.2 Ureteral calculus, left (Inactive) N20.1 Allergies amoxicillin [Amoxicillin] Allergy (Verified 09/03/19 16:26) Anaphylaxis ciprofloxacin [From Cipro] Allergy (Verified 09/03/19 16:26) Hives ciprofloxacin HCl [From Cipro] Allergy (Verified 09/03/19 16:26) Hives codeine Allergy (Verified 09/03/19 16:26) Hives meperidine HCl [From Demerol] Allergy (Verified 09/03/19 16:26) Hives morphine Allergy (Verified 09/05/19 12:08) PT UNSURE OF REACTION Penicillins Allergy (Verified 09/03/19 16:26) Anaphylaxis sulfamethoxazole [From Bactrim] Adverse Reaction (Verified 09/03/19 16:26) HEADACHE sumatriptan [From Imitrex] Adverse Reaction (Verified 09/03/19 16:26) Other tramadol Adverse Reaction (Verified 09/03/19 16:26) HEADACHE trimethoprim [From Bactrim] Adverse Reaction (Verified 09/03/19 16:26) HEADACHE Home Medications: Ambulatory Orders Medication Instructions Recorded Escitalopram Oxalate 20 mg PO DAILY 07/07/18 Ethinyl Estradiol/Drospirenone 1 ea PO DAILY 10/29/18 [Drospirenone-Ee 3-0.03 mg Tab] Ondansetron [Ondansetron Odt] 4 mg PO Q6H PRN PRN #14 tab.rapdis 09/03/19 Galcanezumab-Gnlm [Emgality] 120 mg SQ 09/05/19 Loratadine [Claritin] 10 mg PO DAILY 09/05/19 Surgical History: Surgical History (Last Updated 09/05/19 @ 16:[address] Natalie Dimas MD) H/O dilation and curettage Z98.890 x 2 H/O fasciotomy Z98.890 bilateral S/P foot surgery, left Z98.890 Surgical History: - - lithotripsy Psychiatric History: Anxiety - 2014 - C/S - 34 weeks, PTL; 2013 - first trimester SAB, 2011 - c/s - 37 weeks, placental abruption; 2010 - -38w stillbirth; 2009 - 26w stillbirth, triploidy [employer] History: - Lives: Alone Smoking Status: Never smoker Alcohol: None Drugs: None - *Family History Paternal Family History: Family History (Last Updated 09/05/19 @ 17:[address] Natalie Dimas MD) Father Hypertension Grandmother Breast cancer Review of Systems Constitutional: Denies: Chills, Fever HEENT: Denies: Head Aches Cardiovascular: Denies: Chest Pain Respiratory: Denies: Cough, Shortness of Breath Gastrointestinal: Reports: Abdominal Pain, Nausea. Denies: Constipation, Diarrhea, Vomiting Genitourinary: Denies: Dysuria, Frequency, Hematuria, Hesitancy, Incontinence, Retention Gynecological: Denies: Vaginal bleeding VTE Information - Inpt Only VTE Present on Admission: No VTE Pharm Prophylaxis ordered?: Yes Patient Problems: Active and Suspected Problems (Last Updated 09/05/19 @ 17:[address] Natalie Dimas MD) Pelvic inflammatory disease (PID) (Acute) Subjective: See HPI and ROS Objective: Vital Signs (72 hours) 09/05/19 11:49 Temperature 98.8 F Pulse Rate 107 H Respiratory Rate 18 Blood Pressure 165/121 H Pulse Ox 97 - Physical Exam Vitals/I&O's: Vital Signs Temp Pulse Resp BP Pulse Ox 98.8 F 107 H 18 165/121 H 97 09/05/19 11:49 09/05/19 11:49 09/05/19 11:49 09/05/19 11:49 09/05/19 11:49 Oxygen Delivery Method Room Air Weight: 63.503 kg Body Mass Index (BMI) 24.7 Intake and Output for Last 24 Hours 09/03/19 09/04/19 09/05/19 23:59 23:59 23:59 Intake Total 107.75 / 107.75 Balance 107.75 / 107.75 General: Alert, Oriented x3, Cooperative, No apparent distress HEENT: Atraumatic, Normocephalic Lungs: Clear to auscultation, Normal air movement Cardiovascular: Regular rate, Regular Rhythm, Normal S1, Normal S2 Abdomen: Soft, Non Tender, Non-Distended Extremities: No edema, No Calf Tenderness Neurological: Neuro grossly intact Psych/Mental Status: Normal Affect, Appropriate, Alert and oriented to time, place, person, mood and affect Laboratory Results 09/05/19 14:06: WBC 10.3, RBC 4.52, Hgb 13.8, Hct 41.1, MCV 90.9, MCH 30.5, MCHC 33.6, RDW Std Deviation 42.4, RDW Coeff of Haley 12.9, Plt Count 336, MPV 10.2, Immature Gran % (Auto) 0.300, Neut % (Auto) 72.3 H, Lymph % (Auto) 21.8, [place] % (Auto) 4.8, Eos % (Auto) 0.6, Baso % (Auto) 0.2, Absolute Neuts (auto) 7.4, Absolute Lymphs (auto) 2.23, Nucleated RBC % 0 09/05/19 14:06: Sodium 136, Potassium 3.9, Chloride 105, Carbon Dioxide 26.0, Anion Gap 5, BUN 11, Creatinine 0.76, Estim Creat Clear Calc 84.65, Est GFR (MDRD) Af Amer 111, Est GFR (MDRD) Non-Af 92, BUN/Creatinine Ratio 14.5, Glucose 83, Calcium 9.2, Total Bilirubin 0.40, AST 13 L, ALT 16, Alkaline Phosphatase 73, Total Protein 8.0, Albumin 3.8, Globulin 4.2, Albumin/Globulin Ratio 0.9 Current Medications Acetaminophen (Tylenol) 650 mg PO Q6 [facility] Last Admin: 09/05/19 15:22 Dose: 650 mg Documented by: Diphenhydramine HCl (Benadryl) 25 mg IV Q6H PRN PRN PRN Reason: itching or hives Docusate Sodium (Colace) 100 mg PO BID PRN PRN PRN Reason: Constipation Enoxaparin Sodium (Lovenox) 40 mg SC DAILY [facility] Famotidine (Pepcid) 20 mg PO BID [facility] Gentamicin Sulfate 320 mg/ (Dextrose) 58 mls @ 100 mls/hr IVPB Q24H [facility] Last Admin: 09/05/19 16:46 Dose: 100 mls/hr Documented by: Clindamycin Phosphate 900 mg/ (Dextrose) 106 mls @ 150 mls/hr IV Q8 [facility] Last Infusion: 09/05/19 16:43 Dose: Infused Documented by: Sodium Chloride () 250 mls @ 15 mls/hr IV .[id number] PRN PRN Reason: Saline Flush Last Infusion: 09/05/19 15:29 Dose: 0 mls/hr Documented by: Ketorolac Tromethamine (Toradol (Bkc)) 30 mg IV Q6H [facility] Stop: 09/10/19 14:01 Last Admin: 09/05/19 15:23 Dose: 30 mg Documented by: Morphine Sulfate () 4 mg IV Q3H PRN PRN PRN Reason: Pain Score 6-10/10 Last Admin: 09/05/19 14:20 Dose: 4 mg Documented by: Ondansetron HCl (Zofran) 4 mg IV Q8H PRN PRN PRN Reason: NAUSEA/VOMITING Prochlorperazine Edisylate (Compazine Iv) 5 mg IV Q4H PRN PRN PRN Reason: Breakthrough nausea/vomiting Sodium Chloride () 10 - 40 ml IV UD PRN PRN Reason: SALINE FLUSH Last Admin: 09/05/19 14:20 Dose: 10 ml Documented by: Zolpidem Tartrate (Ambien (Generic)) 5 mg PO QHS PRN PRN PRN Reason: INSOMNIA Assessment/Plan All Active Problems (Last Updated 09/05/19 @ 17:[address] Natalie Dimas MD) Pelvic inflammatory disease (PID) (Acute) 34yo with acute PID, cannot r/o endometriosis, multiple medication allergies, not candidate for outpatient therapy -IV Gent/Clindamycin -DVT ppx -Vaginitis NAAT pending from office -Pain management -Initial BP significantly elevated, suspect due to pain. verbally ordered repeat BP MELBA. -Patient given opportunity to ask questions and questions answered to her satisfaction. Literature provided. Procedure Criteria Procedure Type: Elective COVID Risk Discussion: The surgeon/proceduralist and patient have discussed in detail the risk of exposure to and/or potential harm posed by the COVID-19 virus with having a surgery/procedure at this time versus the risk of delaying the surgery/procedure. It is not possible to know either the risk of delaying the surgery or procedure or chance of getting an infection with perfect accuracy, but a joint decision was made between the patient and the surgeon/proceduralist to proceed at this time with the scheduled surgery/procedure as indicated on the consent form.
[2019-09-05 18:00] VITALS: BP 147/77; PULSE 98; RESP 16; TEMP 36.3; O2SAT 96
[2019-09-05] MEDS: Ondansetron 4 MG/2 ML Vial IV (18:16)
[2019-09-05] MEDS: Enoxaparin 40 MG/0.4 ML Syringe SC (18:23)
[2019-09-05 20:56] VITALS: BP 136/89; PULSE 71; RESP 16; TEMP 36.8; O2SAT 100
[2019-09-05] MEDS: Famotidine 20 MG Tablet PO (21:02)
[2019-09-06] MEDS: Ketorolac 30 MG/ML Syringe IV ×4 (02:10→20:38)
[2019-09-06] MEDS: 0.9% Saline Lock 10 ML Syringe IV ×3 (02:10→20:39)
[2019-09-06 02:18] VITALS: BP 145/84; PULSE 70; RESP 16; TEMP 36.8; O2SAT 100
[2019-09-06] MEDS: Morphine 4 MG/ML Syringe IV ×2 (04:59→09:36)
[2019-09-06 06:53] LABS: Absolute Lymphocyte Count 2.49 X10^3/uL (0.83-4.51); Absolute Neutrophil Count 5.2 X10^3/uL (2.0-7.7); Basophil# 0.03 X10^3/uL; Basophil% 0.3 % (0-1); Eosinophil# 0.27 X10^3/uL; Eosinophils% 3.1 % (0-5); Hematocrit 36.5 % (37-47); Hemoglobin 12.2 g/dL (12.0-15.0); Lymphocyte # 2.49 X10^3/ul (4.0); Lymphocyte % 28.7 % (19-41); Mean Corp Hgb Conc 33.4 g/dL (32-36); Mean Corpuscular Hgb 30.7 pg (27.0-32.0); Mean Corpuscular Volume 91.9 fL (81-99); Mean Platelet Vol. 10.1 fl (6.2-12.0); Monocyte# 0.62 X10^3/uL; Monocyte% 7.2 % (0-10); NRBC Flagged by Analyzer 0 % (0-5); Neutrophil # 5.23 X10^3/uL (2.7-7.7); Neutrophil % 60.4 % (47-70); Platelet Count 273 K/mm3 (150-450); RBC Distribution Width CV 12.6 % (11.6-14.6); RBC Distribution Width SD 42.1 fl (35.1-43.9); Red Blood Count 3.97 M/mm3 (4.2-5.4); White Blood Count 8.7 K/mm3 (4.4-11.0)
[2019-09-06 08:15] VITALS: BP 138/85; PULSE 71; RESP 20; TEMP 36.6; O2SAT 100
[2019-09-06 08:42] VITALS: O2SAT 100
[2019-09-06] MEDS: Ondansetron 4 MG/2 ML Vial IV ×2 (09:58→13:55)
--- NOTE | 2019-09-06 10:57 | PCM.PN.OB ---
Patient Problems: Active and Suspected Problems (Last Updated 09/05/19 @ 17:[address] Natalie Dimas MD) Pelvic inflammatory disease (PID) (Acute) Subjective: c/o migraine headache with nausea and decreased appetite. Abdominal pain is 5/10. Feels most relief with morphine. Objective: AVSS - Physical Exam Vitals/I&O's: Vital Signs Temp Pulse Resp BP Pulse Ox 98 F 71 20 H 138/85 H 100 09/06/19 08:15 09/06/19 08:15 09/06/19 08:15 09/06/19 08:15 09/06/19 08:42 Oxygen Delivery Method Room Air Weight: 63.503 kg Body Mass Index (BMI) 24.7 Intake and Output for Last 24 Hours 09/04/19 09/05/19 09/06/19 23:59 23:59 23:59 Intake Total 827.50 / 827.50 365.25 / 365.25 Balance 827.50 / 827.50 365.25 / 365.25 General: Alert, Oriented x3, Cooperative, No apparent distress HEENT: Atraumatic, Normocephalic Lungs: Clear to auscultation, Normal air movement Cardiovascular: Regular rate, Regular Rhythm, Normal S1, Normal S2 Abdomen: Soft, Non-Distended, - - mild right lower abdominal tenderness without rebound or guarding Extremities: No edema, No Calf Tenderness Neurological: Neuro grossly intact Psych/Mental Status: Normal Affect, Appropriate, Alert and oriented to time, place, person, mood and affect Comment: No CVA tenderness Laboratory Results 09/05/19 14:06: WBC 10.3, RBC 4.52, Hgb 13.8, Hct 41.1, MCV 90.9, MCH 30.5, MCHC 33.6, RDW Std Deviation 42.4, RDW Coeff of Haley 12.9, Plt Count 336, MPV 10.2, Immature Gran % (Auto) 0.300, Neut % (Auto) 72.3 H, Lymph % (Auto) 21.8, [place] % (Auto) 4.8, Eos % (Auto) 0.6, Baso % (Auto) 0.2, Absolute Neuts (auto) 7.4, Absolute Lymphs (auto) 2.23, Nucleated RBC % 0 09/05/19 14:06: Sodium 136, Potassium 3.9, Chloride 105, Carbon Dioxide 26.0, Anion Gap 5, BUN 11, Creatinine 0.76, Estim Creat Clear Calc 84.65, Est GFR (MDRD) Af Amer 111, Est GFR (MDRD) Non-Af 92, BUN/Creatinine Ratio 14.5, Glucose 83, Calcium 9.2, Total Bilirubin 0.40, AST 13 L, ALT 16, Alkaline Phosphatase 73, Total Protein 8.0, Albumin 3.8, Globulin 4.2, Albumin/Globulin Ratio 0.9 09/06/19 06:35: WBC 8.7, RBC 3.97 L, Hgb 12.2, Hct 36.5 L, MCV 91.9, MCH 30.7, MCHC 33.4, RDW Std Deviation 42.1, RDW Coeff of Haley 12.6, Plt Count 273, MPV 10.1, Immature Gran % (Auto) 0.300, Neut % (Auto) 60.4, Lymph % (Auto) 28.7, [place] % (Auto) 7.2, Eos % (Auto) 3.1, Baso % (Auto) 0.3, Absolute Neuts (auto) 5.2, Absolute Lymphs (auto) 2.49, Nucleated RBC % 0 Current Medications Hydrocodone Bitart/Acetaminophen ([place] 5mg-325mg) 2 tablet PO Q4H PRN PRN PRN Reason: Pain Score 6-10/10 Diphenhydramine HCl (Benadryl) 25 mg IV Q6H PRN PRN PRN Reason: itching or hives Docusate Sodium (Colace) 100 mg PO BID PRN PRN PRN Reason: Constipation Enoxaparin Sodium (Lovenox) 40 mg SC DAILY@1800 [facility] Last Admin: 09/05/19 18:23 Dose: 40 mg Documented by: Escitalopram Oxalate (Lexapro) 20 mg PO DAILY [facility] Famotidine (Pepcid) 20 mg PO BID [facility] Last Admin: 09/05/19 21:02 Dose: 20 mg Documented by: Gentamicin Sulfate 320 mg/ (Dextrose) 58 mls @ 100 mls/hr IVPB Q24H [facility] Last Infusion: 09/05/19 17:25 Dose: Infused Documented by: Clindamycin Phosphate 900 mg/ (Dextrose) 106 mls @ 150 mls/hr IV Q8 [facility] Last Infusion: 09/06/19 05:49 Dose: Infused Documented by: Sodium Chloride () 250 mls @ 15 mls/hr IV .[id number] PRN PRN Reason: Saline Flush Last Infusion: 09/06/19 05:49 Dose: 15 mls/hr Documented by: Ketorolac Tromethamine (Toradol (Bkc)) 30 mg IV Q6H [facility] Stop: 09/10/19 14:01 Last Admin: 09/06/19 08:41 Dose: 30 mg Documented by: Loratadine (Claritin) 10 mg PO DAILY [facility] Metoclopramide HCl (Reglan) 5 mg IV X1 ONE Stop: 09/06/19 10:56 Ondansetron HCl (Zofran) 4 mg IV Q8H PRN PRN PRN Reason: NAUSEA/VOMITING Last Admin: 09/06/19 09:58 Dose: 4 mg Documented by: Sodium Chloride () 10 - 40 ml IV UD PRN PRN Reason: SALINE FLUSH Last Admin: 09/06/19 04:59 Dose: 20 ml Documented by: Zolpidem Tartrate (Ambien (Generic)) 5 mg PO QHS PRN PRN PRN Reason: INSOMNIA Medical Necessity - Tobacco Use Smoking Status: Never smoker Assessment/Plan All Active Problems (Last Updated 09/05/19 @ 17:[address] Natalie Dimas MD) Pelvic inflammatory disease (PID) (Acute) 34yo with acute PID, cannot r/o endometriosis flare, multiple medication allergies, not candidate for outpatient therapy -Left shift resolved -Continue IV Gent/Clindamycin -Pain management - transition to PO -DVT ppx -Vaginitis NAAT pending from office
[2019-09-06] MEDS: Metoclopramide 10 MG/2 ML Vial 5 MG IV (11:35)
[2019-09-06 12:15] VITALS: BP 144/80; PULSE 89; RESP 20; TEMP 36.6; O2SAT 100
--- NOTE | 2019-09-06 12:52 | NURSING ---
1215 pt with nausea, med given see APR. will monitor and reevaluate to give scheduled PO meds. Neris Escobedo RN
--- NOTE | 2019-09-06 13:47 | MDS.RN ---
[id number] Dr Monreal called about pt continued nausea, new order given see MAR. Neris Escobedo RN
[2019-09-06 16:18] VITALS: BP 126/75; PULSE 94; RESP 20; TEMP 36.9; O2SAT 99
--- NOTE | 2019-09-06 16:35 | NURSING ---
163 Dr Monreal called about pt status. Pt nausea decreased, headache still present. offered saltines and soda. pt requesting Ibuprofen for pain. per Dr Monreal not able to give because pt on Toradol. Neris Escobedo RN
[2019-09-06] MEDS: Escitalopram Oxalate 10 MG Tablet 20 MG PO (16:49)
[2019-09-06 17:14] LABS: Gentamicin,Once Daily Trough < 0.2 ug/mL (<1.0)
[2019-09-06] MEDS: Enoxaparin 40 MG/0.4 ML Syringe SC (18:18)
[2019-09-06] MEDS: proMETHazine 25 MG/ML Syringe IM (18:19)
[2019-09-06 22:00] VITALS: BP 131/64; PULSE 82; RESP 16; TEMP 36.2; O2SAT 96
[2019-09-06] MEDS: Famotidine 20 MG Tablet PO (22:05)
[2019-09-07] MEDS: 0.9% Saline Lock 10 ML Syringe IV (02:32)
[2019-09-07] MEDS: Ketorolac 30 MG/ML Syringe IV ×2 (02:32→09:11)
[2019-09-07 05:00] VITALS: BP 116/60; PULSE 69; RESP 16; TEMP 36.7; O2SAT 96
[2019-09-07] MEDS: Docusate Sodium 100 MG Capsule PO (05:13)
[2019-09-07 05:50] LABS: Absolute Lymphocyte Count 2.48 X10^3/uL (0.83-4.51); Absolute Neutrophil Count 4.7 X10^3/uL (2.0-7.7); Basophil# 0.02 X10^3/uL; Basophil% 0.3 % (0-1); Eosinophil# 0.16 X10^3/uL; Hematocrit 35.8 % (37-47); Hemoglobin 11.8 g/dL (12.0-15.0); Lymphocyte # 2.48 X10^3/ul (4.0); Lymphocyte % 31.5 % (19-41); Mean Corpuscular Hgb 30.6 pg (27.0-32.0); Mean Platelet Vol. 10.4 fl (6.2-12.0); Monocyte# 0.55 X10^3/uL; NRBC Flagged by Analyzer 0 % (0-5); Neutrophil # 4.65 X10^3/uL (2.7-7.7); Neutrophil % 59.1 % (47-70); Platelet Count 284 K/mm3 (150-450); RBC Distribution Width CV 13.1 % (11.6-14.6); RBC Distribution Width SD 44.3 fl (35.1-43.9); Red Blood Count 3.85 M/mm3 (4.2-5.4); White Blood Count 7.9 K/mm3 (4.4-11.0)
--- NOTE | 2019-09-07 08:27 | PCM.PN.OB ---
Patient Problems: Active and Suspected Problems (Last Updated 09/05/19 @ 17:[address] Natalie Dimas MD) Pelvic inflammatory disease (PID) (Acute) Subjective: Pain much improved. Now with dull throbbing. Did not require pain medication overnight. No nausea or vomiting. Her migraines and nausea have also resolved. Objective: AVSS - Physical Exam Vitals/I&O's: Vital Signs Temp Pulse Resp BP Pulse Ox 98.1 F 69 16 116/60 96 09/07/19 05:00 09/07/19 05:00 09/07/19 05:00 09/07/19 05:00 09/07/19 05:00 Oxygen Delivery Method Room Air Weight: 63.503 kg Body Mass Index (BMI) 24.7 Intake and Output for Last 24 Hours 09/05/19 09/06/19 09/07/19 23:59 23:59 23:59 Intake Total 827.50 / 827.50 1497.50 / 2497.50 1106 / 1106 Balance 827.50 / 827.50 1497.50 / 2497.50 1106 / 1106 General: Alert, Oriented x3, Cooperative, No apparent distress HEENT: Atraumatic, Normocephalic Lungs: Clear to auscultation, Normal air movement Cardiovascular: Regular rate, Regular Rhythm, Normal S1, Normal S2 Abdomen: Soft, Non Tender, Non-Distended Extremities: No edema, No Calf Tenderness Neurological: Neuro grossly intact Psych/Mental Status: Normal Affect, Appropriate, Alert and oriented to time, place, person, mood and affect Laboratory Results 09/06/19 16:35: Gentamicin Trough < 0.2 09/07/19 05:05: WBC 7.9, RBC 3.85 L, Hgb 11.8 L, Hct 35.8 L, MCV 93.0, MCH 30.6, MCHC 33.0, RDW Std Deviation 44.3 H, RDW Coeff of Haley 13.1, Plt Count 284, MPV 10.4, Immature Gran % (Auto) 0.100, Neut % (Auto) 59.1, Lymph % (Auto) 31.5, [place] % (Auto) 7.0, Eos % (Auto) 2.0, Baso % (Auto) 0.3, Absolute Neuts (auto) 4.7, Absolute Lymphs (auto) 2.48, Nucleated RBC % 0 Current Medications Hydrocodone Bitart/Acetaminophen (Gause 5mg-325mg) 2 tablet PO Q4H PRN PRN PRN Reason: Pain Score 6-10/10 Diphenhydramine HCl (Benadryl) 25 mg IV Q6H PRN PRN PRN Reason: itching or hives Docusate Sodium (Colace) 100 mg PO BID PRN PRN PRN Reason: Constipation Last Admin: 09/07/19 05:13 Dose: 100 mg Documented by: Enoxaparin Sodium (Lovenox) 40 mg SC DAILY@1800 [facility] Last Admin: 09/06/19 18:18 Dose: 40 mg Documented by: Escitalopram Oxalate (Lexapro) 20 mg PO DAILY [facility] Last Admin: 09/06/19 16:49 Dose: 20 mg Documented by: Famotidine (Pepcid) 20 mg PO BID [facility] Last Admin: 09/06/19 22:05 Dose: 20 mg Documented by: Gentamicin Sulfate 320 mg/ (Dextrose) 58 mls @ 100 mls/hr IVPB Q24H [facility] Last Infusion: 09/06/19 18:18 Dose: Infused Documented by: Clindamycin Phosphate 900 mg/ (Dextrose) 106 mls @ 150 mls/hr IV Q8 [facility] Last Infusion: 09/07/19 07:34 Dose: Infused Documented by: Sodium Chloride () 250 mls @ 15 mls/hr IV .[id number] PRN PRN Reason: Saline Flush Last Infusion: 09/06/19 18:30 Dose: 15 mls/hr Documented by: Ketorolac Tromethamine (Toradol (Bkc)) 30 mg IV Q6H [facility] Stop: 09/10/19 14:01 Last Admin: 09/07/19 02:32 Dose: 30 mg Documented by: Loratadine (Claritin) 10 mg PO DAILY [facility] Last Admin: 09/06/19 12:42 Dose: Not Given Documented by: Ondansetron HCl (Zofran) 4 mg IV Q8H PRN PRN PRN Reason: NAUSEA/VOMITING Last Admin: 09/06/19 09:58 Dose: 4 mg Documented by: Sodium Chloride () 10 - 40 ml IV UD PRN PRN Reason: SALINE FLUSH Last Admin: 09/07/19 02:32 Dose: 10 ml Documented by: Zolpidem Tartrate (Ambien (Generic)) 5 mg PO QHS PRN PRN PRN Reason: INSOMNIA Medical Necessity - Tobacco Use Smoking Status: Never smoker Assessment/Plan All Active Problems (Last Updated 09/05/19 @ 17:[address] Natalie Dimas MD) Pelvic inflammatory disease (PID) (Acute) 34yo with acute PID, cannot r/o endometriosis flare, multiple medication allergies, not candidate for outpatient therapy -Responded well >36h IV Gent/Clinda -Left shift resolved -Transition to PO Clindamycin -d/c home today
--- NOTE | 2019-09-07 08:43 | PCM.DC.SUM ---
Discharge Date and Diagnosis - Problem List Patient Problems: Active and Suspected Problems (Last Updated 09/05/19 @ 17:[address] Natalie Dimas MD) Pelvic inflammatory disease (PID) (Acute) Date of Admission: 09/05/19 Date of Discharge: 09/07/19 - Primary Discharge Diagnosis Acute Problems: Active Problems (Last Updated 09/05/19 @ 17:[address] Natalie Dimas MD) Pelvic inflammatory disease (PID) (Acute) - Secondary Discharge Diagnosis Chronic Problems: Chronic Problems (Last Updated 09/05/19 @ 17:[address] Natalie Dimas MD) Heart palpitations (Chronic) Hospital Course and Treatment Operations: None Procedures: None Summary of Care Provided: The patient is a 34 year old F admitted for IV antibiotics for PID due to multiple medication allergies. She received pain medication and tolerates IV Gentamicin and Clindamycin with improvement of pain over more than 36 hours. She was discharged to home on hospital day #2. Patient Problems: Active and Suspected Problems (Last Updated 09/05/19 @ 17:[address] Natalie Dimas MD) Pelvic inflammatory disease (PID) (Acute) - Physical Exam Vitals/I&O's: Vital Signs Temp Pulse Resp BP Pulse Ox 98.1 F 69 16 116/60 96 09/07/19 05:00 09/07/19 05:00 09/07/19 05:00 09/07/19 05:00 09/07/19 05:00 Oxygen Delivery Method Room Air Weight: 63.503 kg Body Mass Index (BMI) 24.7 Intake and Output for Last 24 Hours 09/05/19 09/06/19 09/07/19 23:59 23:59 23:59 Intake Total 827.50 / 827.50 1497.50 / 2497.50 1106 / 1106 Balance 827.50 / 827.50 1497.50 / 2497.50 1106 / 1106 Laboratory Results 09/06/19 16:35: Gentamicin Trough < 0.2 09/07/19 05:05: WBC 7.9, RBC 3.85 L, Hgb 11.8 L, Hct 35.8 L, MCV 93.0, MCH 30.6, MCHC 33.0, RDW Std Deviation 44.3 H, RDW Coeff of Haley 13.1, Plt Count 284, MPV 10.4, Immature Gran % (Auto) 0.100, Neut % (Auto) 59.1, Lymph % (Auto) 31.5, [place] % (Auto) 7.0, Eos % (Auto) 2.0, Baso % (Auto) 0.3, Absolute Neuts (auto) 4.7, Absolute Lymphs (auto) 2.48, Nucleated RBC % 0 Current Medications Hydrocodone Bitart/Acetaminophen ([place] 5mg-325mg) 2 tablet PO Q4H PRN PRN PRN Reason: Pain Score 6-10/10 Clindamycin HCl (Cleocin) 450 mg PO 4X/DAY [facility] Diphenhydramine HCl (Benadryl) 25 mg IV Q6H PRN PRN PRN Reason: itching or hives Docusate Sodium (Colace) 100 mg PO BID PRN PRN PRN Reason: Constipation Last Admin: 09/07/19 05:13 Dose: 100 mg Documented by: Enoxaparin Sodium (Lovenox) 40 mg SC DAILY@1800 [facility] Last Admin: 09/06/19 18:18 Dose: 40 mg Documented by: Escitalopram Oxalate (Lexapro) 20 mg PO DAILY [facility] Last Admin: 09/06/19 16:49 Dose: 20 mg Documented by: Famotidine (Pepcid) 20 mg PO BID [facility] Last Admin: 09/06/19 22:05 Dose: 20 mg Documented by: Gentamicin Sulfate 320 mg/ (Dextrose) 58 mls @ 100 mls/hr IVPB Q24H [facility] Last Infusion: 09/06/19 18:18 Dose: Infused Documented by: Sodium Chloride () 250 mls @ 15 mls/hr IV .[id number] PRN PRN Reason: Saline Flush Last Infusion: 09/06/19 18:30 Dose: 15 mls/hr Documented by: Ketorolac Tromethamine (Toradol (Bkc)) 30 mg IV Q6H [facility] Stop: 09/10/19 14:01 Last Admin: 09/07/19 02:32 Dose: 30 mg Documented by: Loratadine (Claritin) 10 mg PO DAILY [facility] Last Admin: 09/06/19 12:42 Dose: Not Given Documented by: Ondansetron HCl (Zofran) 4 mg IV Q8H PRN PRN PRN Reason: NAUSEA/VOMITING Last Admin: 09/06/19 09:58 Dose: 4 mg Documented by: Sodium Chloride () 10 - 40 ml IV UD PRN PRN Reason: SALINE FLUSH Last Admin: 09/07/19 02:32 Dose: 10 ml Documented by: Zolpidem Tartrate (Ambien (Generic)) 5 mg PO QHS PRN PRN PRN Reason: INSOMNIA Discharge Diet: No Restrictions Discharge Activity: Return to Normal Activity, May not drive while taking narcotic pain medications., May Shower, May Take a Tub Bath May resume sexual activity in: 4 weeks Call your doctor if you observe: Fever of 101 or Higher, Inability to urinate, Inability to have a bowel movement, Using more than one pad per hour, Shortness of breath, Chest pain, Calf discomfort, Uncontrolled pain Home Medications: Medications to take at Discharge Escitalopram Oxalate 20 mg PO DAILY 07/07/18 Ethinyl Estradiol/Drospirenone [Drospirenone-Ee 3-0.03 mg Tab] 1 ea PO DAILY 10/29/18 Ondansetron [Ondansetron Odt] 4 mg PO Q6H PRN PRN #14 tab.rapdis 09/03/19 Galcanezumab-Gnlm [Emgality Pen] 120 mg SQ 09/05/19 Loratadine [Claritin] 10 mg PO DAILY 09/05/19 Clindamycin [Cleocin] 450 mg PO 4X/DAY #40 cap 09/07/19 Ibuprofen 800 mg PO TID PRN #60 tab 09/07/19 Following Prescrptions Were Given to Patient: Clindamycin [Cleocin] 450 mg PO 4X/DAY #40 cap Transmission Status: [facility]ending to [id number] Ibuprofen 800 mg PO TID PRN #60 tab PRN Reason: Pain Or Fever Transmission Status: Pending to [id number] Primary Care Physician: Bart Pandya MD [Primary Care Provider] - Please Follow Up With: Natalie Monreal MD When: , September 10 at 2:30 pm Please Follow Up With: Allergy/Immunology - Stefany WATERMAN to provide referral Patient Instructions: ED PID Patient Condition:: Good Medical Necessity - Tobacco Use Smoking Status: Never smoker Meaningful Use Info Meaningful Use Diagnoses (Choose all that apply): None applicable
--- NOTE | 2019-09-07 08:52 | DCINST_ITS ---
- Discharge Diagnoses Current Active Problems: Current Active and Chronic Problems (Last Updated 09/05/19 @ 17:[address] Natalie Dimas MD) Pelvic inflammatory disease (PID) (Acute) Reason(s) for Visit for Discharge Instructions: IV Antibiotics You will use the following diet at home:: No restrictions Your food should be the consistency of: Regular Discharge Activity: Return to Normal Activity, May not drive while taking narcotic pain medications., May Shower, May Take a Tub Bath May resume sexual activity in: 4 weeks Call your doctor if you observe: Fever of 101 or Higher, Inability to urinate, Inability to have a bowel movement, Using more than one pad per hour, Shortness of breath, Chest pain, Calf discomfort, Uncontrolled pain Instructions: ED PID Allergies/Adverse Reactions: Allergies amoxicillin [Amoxicillin] Allergy (Verified 09/03/19 16:26) Anaphylaxis ciprofloxacin [From Cipro] Allergy (Verified 09/03/19 16:26) Hives ciprofloxacin HCl [From Cipro] Allergy (Verified 09/03/19 16:26) Hives codeine Allergy (Verified 09/03/19 16:26) Hives meperidine HCl [From Demerol] Allergy (Verified 09/03/19 16:26) Hives morphine Allergy (Verified 09/05/19 12:08) PT UNSURE OF REACTION Penicillins Allergy (Verified 09/03/19 16:26) Anaphylaxis sulfamethoxazole [From Bactrim] Adverse Reaction (Verified 09/03/19 16:26) HEADACHE sumatriptan [From Imitrex] Adverse Reaction (Verified 09/03/19 16:26) Other tramadol Adverse Reaction (Verified 09/03/19 16:26) HEADACHE trimethoprim [From Bactrim] Adverse Reaction (Verified 09/03/19 16:26) HEADACHE Medications to take at Discharge Escitalopram Oxalate 20 mg PO DAILY 07/07/18 Ethinyl Estradiol/Drospirenone [Drospirenone-Ee 3-0.03 mg Tab] 1 ea PO DAILY 10/29/18 Ondansetron [Ondansetron Odt] 4 mg PO Q6H PRN PRN #14 tab.rapdis 09/03/19 Galcanezumab-Gnlm [Emgality Pen] 120 mg SQ 09/05/19 Loratadine [Claritin] 10 mg PO DAILY 09/05/19 Clindamycin [Cleocin] 450 mg PO 4X/DAY #40 cap 09/07/19 Ibuprofen 800 mg PO TID PRN #60 tab 09/07/19 The following prescriptions were given: Clindamycin [Cleocin] 450 mg PO 4X/DAY #40 cap Transmission Status: [id number] Ibuprofen 800 mg PO TID PRN #60 tab PRN Reason: Pain Or Fever Transmission Status: [id number] Primary Care Physician: Bart Pandya MD [Primary Care Provider] - Test Results: Test results from this visit will be discussed in further detail at your follow- up appointment, if applicable. Please Follow Up With: Natalie Monreal MD When: September 10 at 2:30 pm Please Follow Up With: Allergy/Immunology - Stefany WATERMAN to provide referral
[2019-09-07] MEDS: Famotidine 20 MG Tablet PO (09:16)
[2019-09-07] MEDS: Loratadine 10 MG Tablet PO (09:16)
[2019-09-07] MEDS: Escitalopram Oxalate 10 MG Tablet 20 MG PO (09:16)
== END 2019-09-07 10:55 | disposition home health service (06) ==
LOC: MS3 11:36
PROVIDERS: Admitting Provider Obstetrics & Gynecology; PCP Family Medicine; Visit Provider Obstetrics & Gynecology
DX: N73.9 Female pelvic inflammatory disease, unspecified (principal); F41.9 Anxiety disorder, unspecified; Z79.899 Other long term (current) drug therapy
CPT/HCPCS: 36415; 80053; 80170; 85025; 96365; 96366; 96367; 96372; 96375; 96376; 99218; 99251; J7050; A4216; G0378; G0379; G0463; J2405

== ENCOUNTER 2019-10-06 11:22 | Day surgery (SDC) | payer OTHER, SELFPAY ==
[2019-09-05 11:48] VITALS: BMI 24.7
--- NOTE | 2019-09-25 02:48 | HP_ITS ---
Intake Vital Signs 09/25/19 BMI 24.7 09/25/19 Height 5 ft 2.5 in 09/25/19 Weight: 140 lb 09/25/19 BMI 25.2 09/25/19 BP 122/86 H 09/25/19 Blood Pressure Location Rt brachial 09/25/19 Position Sitting 09/25/19 Respiration 18 Intake Visit Reasons: Consult Appy joint surgery Marli 10/05 Chief Complaint: abdominal pain and nausea Entry Level Rec[employer]iter Required: No Is patient in pain?: Yes (RLQ abdomen) Pain scale (1-10): 6 Allergies amoxicillin [Amoxicillin] Allergy (Verified 09/25/19 14:38) Anaphylaxis ciprofloxacin [From Cipro] Allergy (Verified 09/25/19 14:38) Hives ciprofloxacin HCl [From Cipro] Allergy (Verified 09/25/19 14:38) Hives codeine Allergy (Verified 09/25/19 14:38) Hives meperidine HCl [From Demerol] Allergy (Verified 09/25/19 14:38) Hives morphine Allergy (Verified 09/25/19 14:38) PT UNSURE OF REACTION Penicillins Allergy (Verified 09/25/19 14:38) Anaphylaxis sulfamethoxazole [From Bactrim] Adverse Reaction (Verified 09/25/19 14:38) HEADACHE sumatriptan [From Imitrex] Adverse Reaction (Verified 09/25/19 14:38) Other tramadol Adverse Reaction (Verified 09/25/19 14:38) HEADACHE trimethoprim [From Bactrim] Adverse Reaction (Verified 09/25/19 14:38) HEADACHE Medications Escitalopram Oxalate 20 mg PO DAILY 07/07/18 [History Confirmed 09/25/19] Ethinyl Estradiol/Drospirenone [Drospirenone-Ee 3-0.03 mg Tab] 1 ea PO DAILY 10/29/18 [History Confirmed 09/25/19] Ondansetron [Ondansetron Odt] 4 mg PO Q6H PRN PRN #14 tab.rapdis 09/03/19 [Rx Confirmed 09/25/19] Galcanezumab-Gnlm [Emgality Pen] 120 mg SQ 09/05/19 [History Confirmed 09/25/19] Ibuprofen 800 mg PO TID PRN #60 tab 09/07/19 [Rx Confirmed 09/25/19] PFSH Medical History Heart palpitations (Chronic) delivery delivered (Acute) Migraines (Acute) Seasonal allergies (Acute) Ureteral calculus, left (Inactive) Surgical History H/O dilation and curettage (Acute) H/O fasciotomy (Acute) S/P foot surgery, left (Acute) Family History Father Hypertension Grandmother Breast cancer Social History (Updated 09/25/19 @ 14:[address] Monty Pedersen MD) Smoking Status: Never smoker HPI HPI HPI: DONOVAN BURR, is a 34 F who presents to the office today for HPI HPI Surgical H&P: Yes HPI: DONOVAN BURR, is a 34 F who presents to the office today for laparoscopic appendectomy. The patient has history of right lower quadrant pain and right flank pain. She has been in the ER for this before. She has had several kidney stones as well. The patient is scheduled to undergo laparoscopic right oophorectomy and I was requested to perform a laparoscopic appendectomy the same time of surgery to rule out appendicitis and differential diagnosis in the future. ROS General General: Yes fatigue; no weight change Cardio Cardiovascular: No murmur, pacemaker, heart disease, atrial fibrillation, high blood pressure, heart attack, heart stent, palpitations, shortness of breat with exertion or chest pain Psych Psychiatric: Yes anxiety; no depression Resp Respiratory: No shortness of breath, No sleep apnea, No cough, No COPD, No asthma, No emphysema, No wheezing Gastro Gastrointestinal: Yes abdominal pain, Yes nausea or vomiting, No diarrhea, No constipation, No blood in stool, No acid reflux, No hemorrhoids, No ulcers, No gallbladder problem, No black,tarry stools Ernesto Hematologic: No blood thinners Exam Const General: cooperative Orientation: alert, oriented x3 Resp Effort & Inspection: normal respiratory effort Auscultation: clear to auscultation bilaterally Cardio Rate: regular rate Rhythm: regular rhythm Heart Sounds: no murmurs GI Inspection: non-distended Palpation: soft, tender in the RLQ Assessment & Plan Problems 1. Chronic RLQ pain R10.31; G89.29 Plan The patient is having right oophorectomy as well as left salpingectomy by Dr. Calles. The patient came to see me for appendectomy to remove appendicitis from her differential diagnosis as she has chronic right lower quadrant pain. I discussed appendectomy with the patient in detail. I discussed the risks including but not limited to bleeding, infection, injury to other organs around the appendix. The patient understands and is willing to proceed with appendectomy at the time of her surgery. We discussed the current risks associated with COVID-19. While it is understood that there is a community spread of COVID-19, the risk of sohan COVID-19 while at [facility] ([facility]) is very low; however, the risk cannot be completely mitigated because of the community spread of the disease. We discussed in detail the risk of exposure to and/or potential harm posed by the COVID-19 virus with having a surgery/procedure at this time versus the risk of delaying the surgery/procedure. It is not possible to know either the risk of delaying the surgery or procedure or chance of getting an infection with perfect accuracy, but a joint decision was made to proceed at this time with the scheduled surgery/procedure as indicated on the consent form. Patient was notified that we will need to comply with any screening or testing [facility] wishes to perform or that surgery may be delayed for any positive results. Monty Pedersen MD Pager: [facility] [address] [place] [address], [address] [place] [address] Office: Coding Level of Care Code Off vis,new,level 3 Diagnoses Chronic RLQ pain R10.31; G89.29 09/25/19 1448 <Electronically signed by Monty valderrama MD> Date _ Monty Pedersen MD I have re-examined the patient. There are no clinical changes since date of exam.
[2019-09-25 14:39] VITALS: BMI 24.7
--- NOTE | 2019-09-29 14:54 | EKG12_ITS ---
Test Reason : PRE-OP Blood Pressure : / mmHG Vent. Rate : 077 BPM Atrial Rate : 077 BPM P-R Int : 142 ms QRS Dur : 086 ms QT Int : 390 ms P-R-T Axes : 046 058 038 degrees QTc Int : 441 ms Normal sinus rhythm Normal ECG Confirmed by LONNIE JOHNSON, MARLIN ([id number]), metropolitan editor RANJEET LOPEZ ([id number]) on 09/30/2019 9:32:27 AM Referred By: Bart Calles Confirmed By:MARLIN FLEMING MD
[2019-10-01 12:32] LABS: Hematocrit 39.3 % (37-47); Hemoglobin 13.1 g/dL (12.0-15.0); Mean Corp Hgb Conc 33.3 g/dL (32-36); Mean Corpuscular Hgb 30.8 pg (27.0-32.0); Mean Corpuscular Volume 92.3 fL (81-99); Mean Platelet Vol. 10.6 fl (6.2-12.0); Platelet Count 303 K/mm3 (150-450); RBC Distribution Width CV 12.8 % (11.6-14.6); RBC Distribution Width SD 43.1 fl (35.1-43.9); Red Blood Count 4.26 M/mm3 (4.2-5.4); White Blood Count 8.5 K/mm3 (4.4-11.0)
[2019-10-01 12:51] LABS: Partial Thromboplast Time 30.2 Seconds (24.1-36.2)
[2019-10-01 12:58] LABS: Internal QC Validated? YES +Cl - CLEAR BKGD; Pregnancy, Serum, hCG Quali. NEGATIVE Negative
--- NOTE | 2019-10-05 21:40 | PCM.HP.BLA ---
History and Physical Date of Admission: 10/06/19 Surgical History and Physical Morena Rubin, a 34 year old female 2 2 1 0 2, presents for L/S RSO/LS and appy on October 06, 2019 at 1:00. -- Chronic RLQ Pain -- RLQ Pain which began years ago. Morena claims it started gradually and has been present 3-5 years at least. It occurs with menses now extending into rest of cycle. It is located in the RLQ of the abdomen. Morena characterizes the quality sharp. Severity is intolerable and worsening; It is aggravated by menses. Associated signs and symptoms are menses is when it is most severe.; Associated signs and symptoms are tries to avoid menses by using OCPs continuously but now not working to prevent pain. Additional comments are: was admitted last weekend for pain flare of possible endometriosis; has never had laparoscopy to confirm; CT scan essentially normal recently. MEDICATIONS HISTORY: Current medications prescribed by our practice are: 1. [id number]-[id number]-[id number] 50 mg-325 mg-40 mg tablet, Two tabs at onset of headache then one tab PO every 4 hours for continued headache 2. Emgality 120 mg/mL subcutaneous syringe, monthly 3. Anjelica 3 mg-0.03 mg tablet, one tab PO daily do not take placebo pills 4. Ultram 50 mg tablet, One pill by mouth three times a day Patient is also takin. Lexapro 20 mg tablet, One pill by mouth once a day ALLERGIES: Amox, Rash, Penicillin, Anaphylaxis, Cipro, Hives, Demerol, Hives, Codeine, Hives, Ciprofloxacin, Hives and/or rash, Codeine, Hives and/or rash, Demerol, Hives and/or rash, Penicillins, Anaphylaxis, Doxycycline, Hives and/or rash, Azithromycin, Hives and/or rash, Imitrex, Chest tightness, Morphine and Headache Infections - Chicken pox Illnesses - Migraines, Depression Accidents - no injuries of consequence Hospitalizations - Childbirth and see surgery Kidney Stone Left --Lithotripsy; Review of Systems: GENERAL - Denies fever, or chills SKIN - Denies skin changes EYES - Denies visual changes EARS - Denies difficulty hearing NOSE - Denies nasal congestion or bleeding MOUTH - Denies sore throat or difficulty swallowing NECK - Denies pain or swelling RESPIRATORY - Denies shortness of breath or wheezing CARDIOVASCULAR - Denies palpitations or chest pain GASTROINTESTINAL - Denies nausea, vomiting, diarrhea, constipation GENITOURINARY - Denies dysuria, frequency of urination, incontinence of urine MUSCULOSKELETAL - Denies joint or muscle pain NEUROLOGICAL - Denies localized numbness or weakness PSYCHIATRIC - Denies depression or anxiety ENDOCRINE - Denies heat or cold intolerance, weight loss or gain HEMATO-IMMUNOLOGIC - Denies excesive bleeding with cuts SOCIAL HISTORY: Alcohol Use - None Smoking - denies smoking Diet - no special diet Lifestyle - moderate stress lifestyle and single Exercise - active 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 GR GM -- Breast Ca, DM II, Heart Disease and Hypertension. Father: Hypertension. Paternal Grandmother: Breast cancer. MENSTRUAL HISTORY: LMP Known?- Unknown, Regularity - no menses, LMP - 03/12/18, Age Onset Menarche - 11 PAST PREGNANCIES: Total Pregnancies - 5; Full Term Pregnancies - 2; Premature - 2; Abortions, Induced - 0; Abortions, Spontaneous - 1; Ectopics - 0; Multiple Births - 0; Living Children - 2 SURGICAL HISTORY: 1. ; - Abruption 2. Lithotripsy / Stent Left Kidney 2010 ; - Kidney Stone 3. D and C, 2009 4. 03/22/2014 ; Dr Vance Mccullough 5. Compartment Syndrome X 1999, 2000 ; - Fasciotomy Bilateral lower legs PHYSICAL EXAM BP- 140/92 Sitting, Right arm, regular cuff Weight- 143.35878 lbs Height- 62.5 inch BMI:25.79 CONSTITUTIONAL - NAD, well nourished, and well developed NEUROLOGICAL - Cranial nerves II-XII grossly intact PSYCHIATRIC - A and O to time, place, person, mood and affect External Genitial Vagina - non-tender without lesions Urethra/Urethral Meatus - non-tender Bladder - non-tender Vagina - vaginal lester are pink and moist without loss of rugae and no evidence of atropy Cervix - without cervical motion tenderness and has normal size and features without evident lesions Uterus - 5-6 cm in size, mobile and nontender Adnexa - clear without massess or tenderness ASSESSMENT/PLAN: 1. Abdominal Pain,RLQ and Endometriosis Site Uns Chronic and worsening. Likely endometriosis by exams and history. Discussed options for treatment and plan to proceed with L/S RSO and APPY. Also desires sterilization so will also do left salpingectomy. Discussed RBAs including possibility of not helping with pain and all questions answered.
[2019-10-06] VITALS (8 sets, daily range): BP systolic 109–136; BP diastolic 54–90; PULSE 81–104; RESP 14–16; TEMP 36.2–37.2; O2SAT 95–99; BMI 25.1
[2019-10-06] MEDS: Lactated Ringers 1,000 ML 100 ML IV ×2 (12:00→14:49)
[2019-10-06 12:01] LABS: Internal QC Validated? YES +Cl - CLEAR BKGD; Pregnancy, Urine Negative Negative
--- NOTE | 2019-10-06 13:00 | FALS_PTH ---
PATIENT: DONOVAN BURR [place] [facility] [place][id number] AGE/SX: 34/F ROOM: RE10/06/[address]: Dr. Bart Calles MD : [id number] BED: DIS: 10/06/2019 SPEC #: [id number] RECD: 10/06/19 15:16 STATUS: ALBINO CESPEDES #: [id number] YOLANDA: 10/06/19 13:[address]: Monty Pedersen DEPT: SURGICAL PATHOLOGY RECD BY: Julian Horner ENTERED: 10/07/19 08:08 SP TYPE: FALL TUBES OTHR DR: MD Dr. Bart Torrez MD Tissues: A - Fallopian tube B - Appendix, NOS Procedures: Surgery Specimen Level III Surgery Specimen Level IV HEADER OPERATION: Laparoscopic appendectomy PRE-OP DIAGNOSIS: Chronic RLQ pain TISSUE SUBMITTED: A - Bilateral fallopian tubes, right ovary, B - Appendix MICROSCOPIC DIAGNOSIS A. Right and left fallopian tubes, salpingectomies: Benign paratubal cysts. Right ovary, oophorectomy: Benign follicular cysts and corpora albicantia. B. Appendix, appendectomy: No evidence appendicitis. AM:jhonathan 10/08/19 MICROSCOPIC DESCRIPTION Slides are reviewed. GROSS DESCRIPTION A - Received in fixative is one container labeled with the patient's name and designated bilateral fallopian tubes and right ovary. The specimen consists of one fallopian tube and second fallopian tube and adjacent ovary. The ovary is identified as right ovary. The left fallopian tube measures 8 cm in length and 0.5 cm in diameter. The fimbrial end is identified. Sections reveal unremarkable cut surfaces. The right fallopian tube is similar appearance to left and measures 7 cm in and 0.5 cm in diameter. The right ovary measures 2.5 x 1.5 x 1 cm. Sections reveal unremarkable cut surfaces. Milling Machine Operator Gear sections are submitted in four cassettes as follows: 1 - left fallopian tube, 2 - right fallopian tube, 3 & 4 - right ovary. B - Received is one container labeled with the patient's name and designated appendix. The specimen consists of an L-shaped appendix measuring 5 cm in length and up to 0.5 cm in diameter. The attached periappendiceal adipose tissue measures up to 1.2 cm in width. The serosal surface is tank, glistening and unremarkable. No obvious perforation is identified. The lumen contains a small amount of fecal material. No fecalith is identified. The entire appendix is submitted in one cassette. / ASHOK:jhonathan 10/07/19 TC:5 CPT: 65266 x2, [id number]
--- NOTE | 2019-10-06 13:05 | OP.PCM_ITS ---
Report of Operation Date of Procedure: 10/06/19 Pre-Operative Diagnosis: Desires Permanent Sterilization, Chronic Right Lower Quadrant Pain Post-Operative Diagnosis: Desires Permanent Sterilization, Chronic Right Lower Quadrant Pain, Adhesions Surgery/Procedure Performed:: Diagnostic Laparoscopy, Right Salpingo- Oophorectomy, Left Salpingectomy, Lysis of Adhesions; Appendectomy per Dr. Monty Pedersen dictated separately Description of Surgical Findings:: Normal appearing appendix and pelvis. Adhesions of omentum to right uterine fundus. pilot teacher: Liv Fall Type of Anesthesia:: General - Endotracheal Anesthesiologist: Red Hinton Specimen's removed: Right fallopian tube and ovary, left fallopian tube, appendix Drains: None Estimated Blood Loss (mL): Minimal Fluids Replaced: Crystalloid Description of Procedure: Surgeon: Bart Calles MD, FACOG Indications: This is a 34 year old patient who has the above diagnosis. She has considered sterilization for quite some time. She is aware of the permanent nature of the procedure, the failure rate of 1-2%, and the availability of other nonpermanent control options. All questions were answered to consider the patient well-informed. Procedure: The patient was taken to the operating room where after induction of general anesthesia, she was placed in the dorsolithotomy position and prepped and draped in the usual sterile fashion. The bladder was drained of approximately 50 cc of clear yellow urine with a catheter. Anterior cervix was grasped with the tenaculum. Conn cannula was placed and attention was turned toward the laparoscopic portion of the procedure. Approximately 16 cc of half percent ropivacaine was injected supraumbilically, suprapubically and in the left lateral area. A 5 mm bladeless trocar was placed supraumbilically and intraperitoneal placement confirmed. After CO2 insufflation was complete, a 5 mm bladeless trocar was introduced suprapubically. The above findings were noted. A 5 mm bladeless port was then placed in the left lateral area approximately 11 cm from the umbilicus. The 5 mm supraumbilical port was replaced with a 10/12 mm Rolon port. Each fallopian tube was identified to its fimbriated end and an Enseal device was used to divide the mesosalpinx to the uterus on the left and the infundibulopelvic ligaments to the uterus on the right. Tubes were removed through the lower 5 mm port and the right fallopian tube and ovary were eventually removed through the Rolon port with the appendix. The peritoneal cavity and upper abdomen were examined and noted to be normal. Photographs were taken. Dr. Pedersen completed the laparoscopic appendectomy which is dictated separately. Laparoscopic instruments with as much CO2 gas as possible were removed and incisions were closed with interrupted 4-0 Monocryl suture. Steri-Strips placed across the incision. Vaginal instruments were removed. The patient tolerated the procedure well was taken to recovery room in satisfactory condition and sponge instrument and needle counts were all reportedly correct. Estimated blood loss for the case was minimal. There were no apparent complications of the surgery. Specimens to pathology was bilateral tubes, right ovary, appendix Grafts/Implants Used: None - Complications None - Admit VTE Documentation VTE Present on Admission: Yes VTE Mechan Device Prophylaxis: SCD's
--- NOTE | 2019-10-06 13:10 | PCM.DC.TUB ---
Discharge Diet: No Restrictions - Increase fluid intake for the next 48 hours. Discharge Activity: Return to Normal Activity, May Drive - when you are no longer taking pain/narcotic medicines., May Shower, May Take a Tub Bath - in 7 days. May resume sexual activity in: 3 weeks Additional Activity Instructions:: Ambulate often the next week after surgery. Nothing in the vagina for 5 days. Call your doctor if your incision/area has: Continuous Slow Oozing, Sudden Increased Bleeding, Increased Pain/ Swelling, Increased Redness, Foul Smelling Discharge Call your doctor if you observe: Fever of 101 or Higher, Inability to urinate, Inability to have a bowel movement, Using more than one pad per hour Allergies/Adverse Reactions: Allergies amoxicillin [Amoxicillin] Allergy (Verified 10/06/19 11:36) Anaphylaxis ciprofloxacin [From Cipro] Allergy (Verified 10/06/19 11:36) Hives ciprofloxacin HCl [From Cipro] Allergy (Verified 10/06/19 11:36) Hives codeine Allergy (Verified 10/06/19 11:36) Hives meperidine HCl [From Demerol] Allergy (Verified 10/06/19 11:36) Hives morphine Allergy (Verified 10/06/19 11:36) PT UNSURE OF REACTION Penicillins Allergy (Verified 10/06/19 11:36) Anaphylaxis sulfamethoxazole [From Bactrim] Adverse Reaction (Verified 10/06/19 11:36) HEADACHE sumatriptan [From Imitrex] Adverse Reaction (Verified 10/06/19 11:36) Other tramadol Adverse Reaction (Verified 10/06/19 11:36) HEADACHE trimethoprim [From Bactrim] Adverse Reaction (Verified 10/06/19 11:36) HEADACHE Medications to take at Discharge Escitalopram Oxalate 20 mg PO DAILY 07/07/18 Ethinyl Estradiol/Drospirenone [Drospirenone-Ee 3-0.03 mg Tab] 1 ea PO DAILY 10/29/18 Ondansetron [Ondansetron Odt] 4 mg PO Q6H PRN PRN #14 tab.rapdis 09/03/19 Galcanezumab-Gnlm [Emgality Pen] 120 mg SQ QMONTH 09/05/19 Ibuprofen 800 mg PO TID PRN #60 tab 09/07/19 Loratadine [Claritin] 10 mg PO DAILY 09/29/19 Ranitidine [Zantac] 150 mg PO DAILY PRN 09/29/19 Oxycodone [Oxyir] 5 mg PO Q6H PRN PRN 7 Days #10 tablet 10/06/19 The following prescriptions were given: Oxycodone [Oxyir] 5 mg PO Q6H PRN PRN 7 Days #10 tablet PRN Reason: Pain Score 6-10/10 Transmission Status: Received by [facility]/pharmacy #[id number] Primary Care Physician: Bart Pandya MD [Primary Care Provider] - Test Results: Test results from this visit will be discussed in further detail at your follow-up appointment, if applicable. Please Follow Up With: Bart Calles MD - [phone] When: 2 to 3 weeks
[2019-10-06] MEDS: Ropivacaine 0.5% 30 ML Vial (13:40)
--- NOTE | 2019-10-06 14:17 | PCM.OPRPT ---
Problem List (1) Chronic RLQ pain Status: Acute Report of Operation Date of Procedure: 10/06/19 Pre-Operative Diagnosis: Chronic right lower quadrant pain Post-Operative Diagnosis: Same Surgery/Procedure Performed:: Laparoscopic appendectomy Specimen's removed: Appendix Description of Procedure: The patient had been to the operating room and Dr. Calles performed a laparoscopic bilateral salpingectomy and right oophorectomy. Once this portion of the procedure was complete the appendix was grasped and elevated. The mesoappendix was taken down with the Enseal and the stapler was used to come across the base of the appendix. The appendix was placed in an Endo Catch bag and removed through the umbilical port. The ports were then removed and the fascia of the midline 12 mm port was closed with interrupted 0 Vicryl suture. All the incisions were anesthetized and then closed with interrupted 4-0 Monocryl sutures as well as Steri-Strips and bandages. Patient was awoken and taken to PACU in stable condition. - Admit VTE Documentation VTE Mechan Device Prophylaxis: SCD's
[2019-10-06] MEDS: oxyCODONE 5 MG Tablet PO (15:55)
== END 2019-10-06 17:27 | disposition home or self-care (01) ==
LOC: SDC 11:22 → AC 11:24
PROVIDERS: Anesthesiology; Surgery; PCP Family Medicine; Referring Provider Obstetrics & Gynecology; Visit Provider Obstetrics & Gynecology
PROC: 0DTJ4ZZ Resection of Appendix, Percutaneous Endoscopic Approach (ICD-10-PCS; CPT 44970; principal; 2019-10-06 12:45)
PROC: (CPT 58720; 2019-10-06 12:45)
DX: Z30.2 Encounter for sterilization (principal); Z11.59 Encounter for screening for other viral diseases; R10.31 Right lower quadrant pain; N83.8 Other noninflammatory disorders of ovary, fallopian tube and broad ligament; N83.291 Other ovarian cyst, right side; F41.9 Anxiety disorder, unspecified; K21.9 Gastro-esophageal reflux disease without esophagitis; Z79.899 Other long term (current) drug therapy; Z87.442 Personal history of urinary calculi
CPT/HCPCS: 44970; 58661; 36415; 81025; 84703; 85027; 85610; 85730; 86850; 86900; 86901; 87635; 88302; 88304; 88305; 93005; 94799; J7120; C1760; J2405; U0003

== ENCOUNTER → 2020-07-21 09:07 | Outpatient (CLI) | payer OTHER, SELFPAY ==
[2019-10-06 11:47] VITALS: BMI 25.1
[2020-07-21 10:00] LABS: Absolute Lymphocyte Count 2.44 X10^3/uL (0.83-4.51); Absolute Neutrophil Count 5.6 X10^3/uL (2.0-7.7); Basophil# 0.04 X10^3/uL; Basophil% 0.5 % (0-1); Eosinophil# 0.19 X10^3/uL; Eosinophils% 2.2 % (0-5); Hematocrit 41.9 % (37-47); Lymphocyte # 2.44 X10^3/ul (0.83-4.51); Lymphocyte % 27.8 % (19-41); Mean Corp Hgb Conc 33.4 g/dL (32-36); Mean Corpuscular Hgb 30.2 pg (27.0-32.0); Mean Corpuscular Volume 90.3 fL (81-99); Mean Platelet Vol. 10.3 fl (6.2-12.0); Monocyte# 0.48 X10^3/uL; Monocyte% 5.5 % (0-10); NRBC Flagged by Analyzer 0 % (0-5); Neutrophil # 5.61 X10^3/uL (2.7-7.7); Neutrophil % 63.7 % (47-70); Platelet Count 345 K/mm3 (150-450); RBC Distribution Width CV 12.9 % (11.6-14.6); RBC Distribution Width SD 42.4 fl (35.1-43.9); Red Blood Count 4.64 M/mm3 (4.2-5.4); White Blood Count 8.8 K/mm3 (4.4-11.0)
[2020-07-21 10:26] LABS: Vitamin B12 416 pg/mL (211-911); Vitamin D,25 Hydroxy 36.8 ng/mL
[2020-07-21 10:48] LABS: ALB/GLOB Ratio 0.7 RATIO (0.9-2.4); AST(SGOT) 14 U/L (15-37); Alanine Aminotransfer ALT/SGPT 19 U/L (13-56); Albumin, Serum 3.2 g/dL (3.2-5.0); Alkaline Phosphatase 82 U/L (45-117); Anion Gap 9 (5-15); BUN 13 mg/dL (7-18); BUN/Creat Ratio 15.4 RATIO (10-20); Calcium,Total 9.1 mg/dL (8.5-10.1); Chloride 104 mmol/L (98-107); Creatinine, Serum 0.84 mg/dL (0.55-1.02); EST Glomerular Filtration Rate 81 mL/min (>60); Est Glom Filt Rate - Afr Amer 98 mL/min (>60); Globulin 4.3 g/dL (2.2-4.2); Glucose 78 mg/dL (74-106); Potassium 3.6 mmol/L (3.5-5.1); Protein, Total 7.5 g/dL (6.4-8.2); Sodium Level 138 mmol/L (136-145); T4 Free Direct 0.99 ng/dL (0.76-1.46); Thyroid Stim Hormone (TSH) 1.87 uIU/mL (0.358-3.74)
== END ==
PROVIDERS: PCP Family Medicine; Referring Provider Family Medicine; Visit Provider Family Medicine
DX: R53.83 Other fatigue (principal)
CPT/HCPCS: 36415; 80053; 82306; 82607; 84439; 84443; 85025

== ENCOUNTER → 2020-07-28 11:19 | Outpatient (CLI) | payer OTHER, SELFPAY ==
[2019-10-06 11:47] VITALS: BMI 25.1
[2020-07-30 16:52] LABS: HPV APTIMA, High Risk Negative (Negative); HPV Reflexed? YES, CHARGE PATIENT
== END ==
PROVIDERS: PCP Family Medicine; Visit Provider Obstetrics & Gynecology
DX: Z12.4 Encounter for screening for malignant neoplasm of cervix (principal)
CPT/HCPCS: 87624; 88175; G0145

== ENCOUNTER 2021-06-06 11:02 | Emergency (ER) | payer OTHER, SELFPAY ==
[2021-06-06 11:11] VITALS: BP 145/103; PULSE 122; RESP 17; TEMP 36.6; O2SAT 100; BMI 23.8
--- NOTE | 2021-06-06 11:11 | NURSING ---
NO OLD EKGS
[2021-06-06 11:15] VITALS: BP 158/111; PULSE 112; RESP 18; O2SAT 98
--- NOTE | 2021-06-06 11:28 | EKG12_ITS ---
Test Reason : CP Blood Pressure : / mmHG Vent. Rate : 120 BPM Atrial Rate : 120 BPM P-R Int : 154 ms QRS Dur : 076 ms QT Int : 306 ms P-R-T Axes : 052 069 008 degrees QTc Int : 432 ms Sinus tachycardia Nonspecific ST and T wave abnormality Abnormal ECG Confirmed by ANTHONY JOHNSON, MATT ([id number]), editorial writer RYANN LANG ([id number]) on 06/07/2021 8:29:56 AM Referred By: SHI Confirmed By:MATT CRUZ MD
--- NOTE | 2021-06-06 11:28 | ED.VIS.CHEST ---
HPI History of Present Illness Chief Complaint: Chest Pain Detail of Chief Complaint: Episode at 930 and 40 minutes prior to presentation Informant: patient and spouse/S.O. Onset/Context/Timing Onset: Today and Hours Activity at onset: sudden Timing: Intermittent Quality: Positive for Pressure Location: Substernal Current Severity: Mild Maximum Severity: Moderate Worsened By: Nothing Relieved By: Nothing Associated Symptoms: Positive for Nausea, Diaphoresis, Dyspnea, Acid Reflux and Palpitations; Negative for Vomiting, Cough, Fever and Lightheadedness Narrative Narrative: Patient is a 35-year-old G2, P2 woman status post bilateral salpingectomy and unilateral oophorectomy who presents because of elevated blood pressure of 175/107 and chest discomfort. First episode of chest discomfort occurred at rest at 930 and lasted approximate 30 minutes. Second episode started 40 minutes prior. She did report feeling sweaty mildly short of breath and nauseous. There is no radiation of the discomfort. She states she had similar presentation when her blood pressure was elevated. She denies headache. She denies double vision or loss of vision. Nuys ringing ears decreased hearing. Nuys trouble speech or swallowing. She presently denies shortness of breath. She denies vomiting or diarrhea. She denies urologic symptoms. She denies paresthesia, anesthesia medics. She denies trouble with her balance or walking. She did not have -induced hypertension with her children. She states she had a partial hysterectomy. Prior Similar Symptoms: Yes (Elevated blood pressure) Recent Illness/Hospitalization: No CVD Risk Factors: Negative for Hypertension, Diabetes, Hypercholesterolemia, Family History 1' </=55 and Smoking PE Risk Factors: Positive for - (Patient is on control pills to treat her migraine headaches); Negative for Recent Travel/Surgery, Recent Immobilization, Prior DVT or PE, Cancer and OCP + Smoking + >/=35 TAD Risk Factors: Negative for Marfan's Syndrome, Hypertension and Family History [facility] Medical History (Updated 06/06/21 @ 12:[address] Jeancarlos Page MD) delivery delivered Heart palpitations Migraines Seasonal allergies Ureteral calculus, left Home Medications drospirenone-ethinyl estradiol 1 ea PO DAILY 10/29/18 [History Last Taken 09/05/19] galcanezumab-gnlm 120 mg SQ QMONTH 09/05/19 [History Last Taken 09/29/19] ibuprofen 800 mg PO TID PRN #60 tab 09/07/19 [Rx Last Taken Unknown] Ranitidine [Zantac] 150 mg PO DAILY PRN 09/29/19 [History Last Taken 10/06/19 09:00] loratadine 10 mg PO DAILY 09/29/19 [History Last Taken Unknown] hydrochlorothiazide 12.5 mg PO DAILY #30 tab 06/06/21 [Rx Last Taken Unknown] vortioxetine [Trintellix] 5 mg PO DAILY 06/06/21 [History Last Taken Unknown] Allergy/AdvReac Type Severity Reaction Status Date / Time amoxicillin [Amoxicillin] Allergy Anaphylaxis Verified 06/06/21 11:03 ciprofloxacin [From Cipro] Allergy Hives Verified 06/06/21 11:03 ciprofloxacin HCl Allergy Hives Verified 06/06/21 11:03 [From Cipro] codeine Allergy Hives Verified 06/06/21 11:03 meperidine HCl [From Demerol] Allergy Hives Verified 06/06/21 11:03 morphine Allergy PT UNSURE Verified 06/06/21 11:03 OF REACTION Penicillins Allergy Anaphylaxis Verified 06/06/21 11:03 sulfamethoxazole AdvReac HEADACHE Verified 06/06/21 11:03 [From Bactrim] sumatriptan [From Imitrex] AdvReac Other Verified 06/06/21 11:03 tramadol AdvReac HEADACHE Verified 06/06/21 11:03 trimethoprim [From Bactrim] AdvReac HEADACHE Verified 06/06/21 11:03 Family History Father Hypertension Grandmother Breast cancer Surgical History (Updated 06/06/21 @ 11:[address] Jeancarlos Page MD) H/O dilation and curettage H/O fasciotomy H/O unilateral oophorectomy S/P foot surgery, left Social History (Updated 06/06/21 @ 11:[address] Jeancarlos Page MD) household members: spouse and children Smoking Status: Never smoker substance use type: does not use ROS ROS ED Constitutional Constitutional ED: Denies chills, fever(s), subjective, sweats or weight loss Eyes Eyes: Denies blurry vision, change in vision or diplopia ENT ENT ED: Denies ear pain, rhinorrhea or sore throat Cardiovascular Cardiovascular: Reports as per HPI; Denies orthopnea or paroxysmal nocturnal dyspnea Respiratory/Chest Respiratory/Chest: Reports dyspnea; Denies cough, dyspnea on exertion, orthopnea, paroxysmal nocturnal dyspnea or sputum Gastrointestinal Gastrointestinal: Reports nausea; Denies abdominal pain, constipation, diarrhea, melena or vomiting Genitourinary Genitourinary ED: Denies dysuria, hematuria or urinary frequency Musculoskeletal Musculoskeletal: Denies arthralgias, back pain, myalgias or neck pain Integumentary Denies rash Neurologic Neurologic: Denies headache(s), paresthesias or weakness Hematologic/Lymphatic Hematologic/Lymphatic: Denies anemia, easy bleeding, easy bruising or lymphadenopathy EXAM Physical Exam Const Vital Signs: 06/06/21 11:11 06/06/21 11:15 06/06/21 11:25 Temperature 97.9 F Temperature Source Temporal Pulse Rate 122 H 112 H Respiratory Rate 17 18 Respiratory Effort Short of Breath Respiratory Pattern Normal Blood Pressure 145/103 H 158/111 H Blood Pressure Mean 117 126 Pulse Ox 100 98 Oxygen Delivery Method Room Air Room Air Positive well nourished and well developed General Appearance ED: well developed and NAD; Negative for pallor HEENT Reports TM's clear and moist mucous membranes HEENT Narrative: Uvula midline. No deviation of tongue or protrusion. There is no erythema or exudate of posterior pharynx. Nares patent. normocephalic and atraumatic Tympanic Membrane ED: Yes TM's clear Eyes PERRL and EOMs intact bilaterally Eyes Narrative: There is no nystagmus. There is no APD. General Eye ED: Negative for pale conjunctiva or scleral icterus Neck no lymphadenopathy, supple and no JVD Chest Wall inspection of chest normal and palpation of chest normal Resp normal respiratory effort and clear to auscultation bilaterally Effort and Inspection: respiratory distress Cardio regular rate, regular rhythm, S1 normal heart sound, S2 normal heart sound and no murmurs GI normal to inspection, nondistended, normoactive bowel sounds, soft to palpation, non-tender and non-distended Back/Spine no CVA tenderness and no thoracic nor lumbar tenderness Extremity General Extremety ED: Negative for edema or tenderness General Extremity: Negative for edema Neuro oriented x3, CN's II-XII intact bilaterally, no sensory deficits noted and gait normal Neuro Narrative: There is no dysmetria. Patient able to walk on heels and toes. Tandem gait is normal. Sensorium / Orientation: awake and alert Motor Exam: strength 5/5 throughout Psych mental status grossly normal Skin no rashes or lesions noted and no wounds General Skin Exam: Negative for jaundice or pallor MDM MDM MDM Narrative Medical decision making narrative: Patient with atypical chest pain. Will obtain EKG and blood work to assess for endorgan injury. Patient's blood pressure is elevated. First blood pressure reading was 145/103. Second blood pressure reading was 158/111. Lab Data Attestation: I reviewed the patient's lab results. Lab results narrative: Laboratory values are unremarkable. UA is unremarkable. There is no evidence of endorgan injury. Troponin is 6 which is less than 7. And will need to not need further levels drawn. Labs: Laboratory Results - last 24 hr 06/06/21 06/06/21 06/06/21 11:25 11:25 11:55 WBC 9.8 RBC 4.75 Hgb 14.4 Hct 41.7 MCV 87.8 MCH 30.3 MCHC 34.5 RDW Std Deviation 40.5 RDW Coeff of Haley 12.5 Plt Count 350 MPV 10.3 Immature Gran % (Auto) 0.300 Neut % (Auto) 68.4 Lymph % (Auto) 24.7 Rains % (Auto) 5.3 Eos % (Auto) 0.9 Baso % (Auto) 0.4 Absolute Neuts (auto) 6.7 Absolute Lymphs (auto) 2.41 Nucleated RBC % 0 Sodium 136 Potassium 3.7 Chloride 105 Carbon Dioxide 21.0 Anion Gap 10 BUN 13 Creatinine 1.00 Estim Creat Clear Calc 63.72 Est GFR (MDRD) Af Amer 80 Est GFR (MDRD) Non-Af 66 BUN/Creatinine Ratio 13.0 Glucose 118 H Calcium 9.5 Troponin I High Sens 6 Urine Color Yellow Urine Clarity Sl. Cloudy Urine pH 7.0 Ur Specific [place] 1.010 Urine Protein Negative Urine Glucose (UA) Normal Urine Ketones Negative Urine Occult Blood Negative Urine Nitrite Negative Urine Bilirubin Negative Urine Urobilinogen Normal Ur Leukocyte Esterase 25 H Urine RBC 0 SEEN Urine WBC 0-5 SEEN Ur Squamous Epith Cells 0-5 SEEN Urine Bacteria 0 SEEN Urine Mucus 0 SEEN EKG Initial EKG: Attestation: I personally reviewed and interpreted this EKG as follows: Interpretation: Sinus Tachycardia (Ventricular rate is 120. [place] interval is 154 ms. Cures duration 76 ms. QT duration 306 ms. [place] is normal. There is no ossific changes noted. Suspect this is due to motion artifact.) Discharge Plan Triage Chief Complaint: Chest Pain Other Complaint: Hypertension ED Provider: Jeancarlos Page Dx/Rx/DC Orders Clinical Impression: Hypertension Instructions: ED Hypertension New Begin Treatment Prescriptions: New hydrochlorothiazide 12.5 mg tablet 12.5 mg PO DAILY Qty: 30 RF: 0 No Action drospirenone-ethinyl estradiol 1 EACH tablet 1 ea PO DAILY RF: 0 galcanezumab-gnlm 120 MG/ML pen injector 120 mg SQ QMONTH RF: 0 ibuprofen 800 MG tablet 800 mg PO TID PRN (Reason: Pain Or Fever) Qty: 60 RF: 0 loratadine 10 MG tablet 10 mg PO DAILY RF: 0 Ranitidine [Zantac] 150 MG tablet 150 mg PO DAILY PRN (Reason: gerd) RF: 0 Trintellix 5 mg Tablet 5 mg PO DAILY RF: 0 Primary Care Provider: Bart Pandya Referrals: Bart Pandya MD [Primary Care Provider] - 1-2 Weeks Disposition Disposition: Home, Self Care
[2021-06-06 11:45] LABS: Absolute Lymphocyte Count 2.41 X10^3/uL (0.83-4.51); Absolute Neutrophil Count 6.7 X10^3/uL (2.0-7.7); Basophil# 0.04 X10^3/uL; Basophil% 0.4 % (0-1); Eosinophil# 0.09 X10^3/uL; Eosinophils% 0.9 % (0-5); Hematocrit 41.7 % (37-47); Hemoglobin 14.4 g/dL (12.0-15.0); Lymphocyte # 2.41 X10^3/ul (0.83-4.51); Lymphocyte % 24.7 % (19-41); Mean Corp Hgb Conc 34.5 g/dL (32-36); Mean Corpuscular Hgb 30.3 pg (27.0-32.0); Mean Corpuscular Volume 87.8 fL (81-99); Mean Platelet Vol. 10.3 fl (6.2-12.0); Monocyte# 0.52 X10^3/uL; Monocyte% 5.3 % (0-10); NRBC Flagged by Analyzer 0 % (0-5); Neutrophil # 6.67 X10^3/uL (2.7-7.7); Neutrophil % 68.4 % (47-70); Platelet Count 350 K/mm3 (150-450); RBC Distribution Width CV 12.5 % (11.6-14.6); RBC Distribution Width SD 40.5 fl (35.1-43.9); Red Blood Count 4.75 M/mm3 (4.2-5.4); White Blood Count 9.8 K/mm3 (4.4-11.0)
[2021-06-06 11:59] LABS: Bacteria 0 SEEN /hpf (None Seen); Mucous, Urine 0 SEEN /hpf (<or=2+); Red Blood Cells-Urine 0 SEEN /hpf (0-5)
[2021-06-06 12:00] LABS: Anion Gap 10 (5-15); BUN 13 mg/dL (7-18); Calcium,Total 9.5 mg/dL (8.5-10.1); Chloride 105 mmol/L (98-107); EST Glomerular Filtration Rate 66 mL/min (>60); Est Glom Filt Rate - Afr Amer 80 mL/min (>60); Estimated Creatinine Clearance 63.72 ml/min; Glucose 118 mg/dL (74-106); Potassium 3.7 mmol/L (3.5-5.1); Sodium Level 136 mmol/L (136-145); Troponin-I HS 6 pg/mL (3.0-54.0)
[2021-06-06 12:01] LABS: Color, Urine Yellow (Yellow); Glucose, Dipstick Normal (Normal); Ketone-Dipstick Negative (Negative); Leukocyte Esterase-Dipstick 25 /ul (Negative); Nitrite-Dipstick Negative (Negative); Occult Blood-Urine Negative /ul (Negative); Protein-Dipstick Negative (Negative); Urine Bilirubin Dipstick Negative (Negative); Urine Clarity Sl. Cloudy (Clear); Urine Urobilinogen Normal (Normal)
[2021-06-06 12:15] LABS: Squamous Epithelial Cells - UA 0-5 SEEN /hpf (5-10); White Blood Cells 0-5 SEEN /hpf (0-5)
[2021-06-06 12:47] VITALS: BP 149/66; PULSE 96; RESP 16; O2SAT 97
== END 2021-06-06 12:53 | disposition home or self-care (01) ==
PROVIDERS: Emergency Provider Emergency Medicine; PCP Family Medicine; Visit Provider Emergency Medicine
DX: I10 Essential (primary) hypertension (principal); Z79.899 Other long term (current) drug therapy; Z90.721 Acquired absence of ovaries, unilateral
CPT/HCPCS: 80048; 81001; 84484; 85025; 93005; 99284

== ENCOUNTER → 2021-06-09 | Outpatient (CLI) | payer OTHER, SELFPAY ==
[2021-06-09 12:28] LABS: D-Dimer Quantitative (DVT/PE) 0.33 FEU/ug/m (0.27-0.49)
[2021-06-09 12:53] LABS: Anion Gap 8 (5-15); BUN 13 mg/dL (7-18); Chloride 102 mmol/L (98-107); Creatinine, Serum 0.81 mg/dL (0.55-1.02); EST Glomerular Filtration Rate 84 mL/min (>60); Est Glom Filt Rate - Afr Amer 102 mL/min (>60); Glucose 76 mg/dL (74-106); Potassium 3.8 mmol/L (3.5-5.1); Sodium Level 137 mmol/L (136-145)
== END | disposition home or self-care (01) ==
LOC: MFPLAB 10:52
PROVIDERS: PCP Family Medicine; Referring Provider Family Medicine; Visit Provider Nurse Practitioner Family
DX: I10 Essential (primary) hypertension (principal)
CPT/HCPCS: 36415; 80048; 85379

== ENCOUNTER 2021-07-04 09:00 | Outpatient (RCR) | payer OTHER, SELFPAY ==
--- NOTE | 2021-05-25 14:45 | HP.PTEVAL_ITS ---
Patient's Visit Information DONOVAN BURR is a 35 year old F referred to Physical Therapy by Dr. Bart Pandya MD with a diagnosis of BPPV. Date of Evaluation: 05/25/21 Physical Therapist: Yonas Villalba DPT, OCS, CSCS - Visit Plan Frequency: 1x/Week Duration: 4-6 Weeks Plan: weekly as needed x 2-4 for. 1. positional checks(R post BPPV) adn treat, possibly BD. 2. ensure balance good. - Subjective Vertigo started a year ago, Woke up and went to get up and fell back in bed sweaty and nauseous and dizzy. That lasted 4 days. Has recurred 5 x since. Currently will feel it if she looks up or turns in bed she will start to spin. Gone quickly Feels mostly normal if she is not llooking up, ec balance is off. Sleep is OK. Employed as [employer] and has missed work, recently early in year. Maneuvers are done. and it recurs. Has meclizine many days. Hobbies: Avoids sports with kids. - Objective Cervical aROM full and without pain. Posture is forward head but comfortable. - L hallpike jean. + R hallpike jean slight up torsional nystagmus and quick mild dizzyness. Much better after steve but not perfect. - Balance/Special Test Scores Functional Gait Assessment Score: 27 % Disability: 10.0000 Dizziness Score: 42 - Goals Goal 1:: abolish dizzyness with looking up and rolling,bending Goal Time Frame: 2-4 Weeks Goal 2:: 30/30 FGA to diminish risks Goal Time Frame: 2-4 Weeks - Rehabilitation Potential Physical Therapy Diagnosis: likely Bppv Rehabilitation Potential: Good - Anticipated Interventions Patient/Client Instruction: Educate patient on: Condition, Plan of Care For the Purpose of:: To improve muscle performance and motor function, To increa se tolerance to activity/condition/position, To improve ability of physical actions for home/community/work/leisure Therapeutic Exercise to Include: Balance training Comment: vestibular positional treatments/ex For the Purpose of:: To increase tolerance to activity/condition/position, To improve ability of physical actions for home/community/work/leisure Thank you for the opportunity to evaluate your patient. For Medicare and Medicare HMO plans, please review the plan of care and approve it. It will need to be FAXED BACK to us at [phone] for Medicare purposes. For Medicare only, by signing this I certify the plan of care. Please let me know if there are questions or concerns regarding this plan of care. Physician Signature: Date:
--- NOTE | 2021-07-04 09:16 | HP.PTDCSUM ---
It has been my pleasure to treat DONOVAN CHENGROSCOE referred by Dr. Bart Pandya MD, with the diagnosis of BPPV for a total of 5 visit(s). Discharge Date: 07/04/21 Please see the following information for a summary of their discharge status. Subjective: A little slightly better. VOR intermittently symptomatic intensity. Symptoms outside of exercising pretty good. A little bit looking through fence watching baseball. Life is normal activity garcia. I can actually look up. % Improvement: 75 Objective/Function: Walks well with all head movements , slight deficit with turning and looking up at same time. Otherwise does well. VOR only aproblem with vertical stripes and subjectively chain link fence. Educated on management and this as an HEP Goal 1:: abolish dizzyness with looking up and rolling,bending Goal Progress: Goal Met Goal 2:: FGA to diminish risks Goal Progress: Goal Met Plan: d/c, pt to contact doctor if improvement stagnates. If there are questions or concerns regarding this patient's physical therapy, please feel free to call me at [phone]. Thank you for the referral of this patient. Sincerely, Yonas Villalba, DPT, OCS, CSCS Balance/Gait/Functional tests - Balance/Special Test Scores Functional Gait Assessment Score: 30 % Disability: 0 Dizziness Score: 18
== END 2021-07-04 19:00 | disposition home or self-care (01) ==
LOC: PT 09:00
PROVIDERS: PCP Family Medicine; Referring Provider Family Medicine; Visit Provider Family Medicine
DX: H81.10 Benign paroxysmal vertigo, unspecified ear (principal)
CPT/HCPCS: 97161; 97164; 97530

== ENCOUNTER → 2021-07-14 | Outpatient (CLI) | payer OTHER, SELFPAY ==
--- NOTE | 2021-07-14 16:58 | RAD_ITS ---
STUDY: X-RAY - LUMBAR SPINE REASON FOR EXAM: Female, 35 years old. Pain. TECHNIQUE: 4 view(s) of the lumbar spine were obtained. COMPARISON: None FINDINGS: Normal lumbar lordosis. There is no substantial scoliosis. There is a normal alignment of the vertebrae. Normal vertebral bodies and endplates. Normal disc space heights. There is no evidence of acute fracture or loss of vertebral axial height. There is no demonstrated spondylolysis of the pars interarticulares. The soft tissue structures are unremarkable. RAD/L/S Spine Min 4 Views IMPRESSION: Normal x-ray examination of the lumbar spine. Electronically Signed: Phuc Fernandez DO at 18:30 EDT ,
== END | disposition home or self-care (01) ==
LOC: MTRAD 16:57
PROVIDERS: PCP Family Medicine; Referring Provider Physician Assistant; Visit Provider Physician Assistant
DX: M54.50 Low back pain, unspecified (principal)
CPT/HCPCS: 72110

== ENCOUNTER 2021-08-11 09:30 | Outpatient (RCR) | payer OTHER, SELFPAY ==
--- NOTE | 2021-07-19 11:49 | HP.PTEVAL_ITS ---
Patient's Visit Information DONOVAN BURR is a 35 year old F referred to Physical Therapy by RANDALL Johnson with a diagnosis of Lumbar Strain. Date of Evaluation: 07/19/21 Physical Therapist: Gloria Casanova DPT - Visit Plan Frequency: 3x /Week Duration: 4 Weeks Plan: AQUATIC THERAPY FOR PAIN RELEIF, POSTURE CORRECTION/STRENGTHENING, INSTRUCTION IN APPROPRIATE BODY MECHANICS AND ACTIVITY MODIFICATIONS. DLS STARTING WITH A NEUTRAL SPINE PROGRESSING ROM TOLERATED. ANNA LE ROM, STRETCHING AND STRENGTHENING. HEP INSTRUCTION. 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 Pain is located in the lower back and radiates into the right buttock- every once in awhile it goes to the left. The pain is staying the same and not getting better. Went to the chiro- Dr. Simon- he adjusted her and did e-stim and heat- made it worse. Pain is all the time. Worst: 10/22 Agg: sitting, laying down (diego back)- sitting is the worst. Standing still hurts but its better. Eases: patches help the muscle type pain. Best: 5-07/22. Describes the pain as burning and sharp pain. She has never had back issues before- scoliosis but never bothered her. Went to urgent care- x-ray which reported herniated discs. Does radiate down through the thigh but that comes and goes- tingling and sharp pains. Prednisone and Flexural- on day 5 for Prednisone- Flexural is horrible. 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 No N/T in the toes. Sleep: has not slept much at all. PMHx/Meds: see list from Urgent Care. - Pain LOW BACK Pain Intensity (Out of 10): 6 BUTTOCKS/PROX THIGH Pain Intensity (Out of 10): 0 R TOES Pain Intensity (Out of 10): 0 Comment: NOT PAIN - TOES ARE TINGLING. - Objective Posture: very guarded- upright with little movement-due to fear of pain. Gait: guarded- upright posture no arm swing or trunk rotation. HR/TR: able with UE A. SLS: Left: 30 sec Right: 15 sec with increased muscular activity and sway- reports pain. ROM: severe restriction in all lumbar directions with severe pain SB and rotation right, flexion and extension. LE: WFL. Sensation/Reflex: WFL. Strength: Core: poor, Hip: 4/5 throughout in right with pain, Knee/Ankle: 5/5. Flex: HS: severe, Gastroc: moderate. Palpation: tender along lumbar spine, paraspinals, gluts, hip and down the ITBand. Special Test: painful in all motions in supine, sitting and standing. - Special Tests L/S Slump test left side: Positive L/S Slump test right side: Positive L/S Left Straight Leg Raise: Positive L/S Right Straight Leg Raise: Positive - Balance/Special Test Scores Oswestry Low Back Score: 36 - Goals Goal 1:: Patient will be I with HEP and progression Goal Time Frame: 4-6 Weeks Goal 2:: Patient will maintain proper posture t/o tx session to demo increased core s/s Goal Time Frame: 4-6 Weeks Goal 3:: Patient will ambulate >300 feet with a normalized gait pattern Goal Time Frame: 4-6 Weeks Goal 4:: Patient will report no s/s with ADL's for 1 week Goal Time Frame: 4-6 Weeks Goal 5:: Patient will sleep through the night for 1 week Goal Time Frame: 6-8 Weeks - Rehabilitation Potential Physical Therapy Diagnosis: Patient presents with hypomobility- she has decreased LE and core strength/stabilization, flex, lumbar ROM and muscular endurance leading to peripheral symptoms and pain with ADL's/ Rehabilitation Potential: Fair - Anticipated Interventions Patient/Client Instruction: Educate patient on: Benefits of Fitness Program Therapeutic Exercise to Include: Strength training, Endurance training, Balance training, Coordination, Agility training, Body mechanics, Postural training, Flexibilty training, Gait and locomotor training, Neuromotor development, In an aquatic setting, Dynamic Lumbar Stabilization, Scapular Strength/Stabilization For the Purpose of:: To improve muscle performance and motor function Thank you for the opportunity to evaluate your patient. For Medicare and Medicare HMO plans, please review the plan of care and approve it. It will need to be FAXED BACK to us at [phone] for Medicare purposes. For Medicare only, by signing this I certify the plan of care. Please let me know if there are questions or concerns regarding this plan of care. Physician Signature: Date:
--- NOTE | 2021-08-11 09:40 | HP.PTREVAL_ITS ---
RANDALL Johnson, It has been my pleasure to treat DONOVAN BURR over the last 10 visits for Lumbar Strain. Please see the progress note below for an update on the physical therapy plan of care! Subjective: Patient reports that she is some days better but some days not. She goes back to see the [employer] today and has not had an MRI yet. She is still unable to sit for any length of time. Still has pain in the lower back and the buttocks- its starting to creep down the left leg to the thigh- comes and goes through the day. Does not have any N/T in the toes. Objective/Function: No significant changes in objective measure since starting PT- possibly worse as symptoms are not starting in left LE. Posture: very guarded- upright with little movement- prefers to stand for re- assessment Gait: guarded- upright posture no arm swing or trunk rotation. HR/TR: able with UE A. SLS: Left: 30 sec Right: 30 sec with increased muscular activity and sway- reports pain bilaterally. ROM: severe restriction in all lumbar directions with severe pain SB and rotation right, flexion and extension. LE: WFL. Sensation/Reflex: WFL. Strength: Core: poor, Hip: 4/5 throughout in right with pain, Knee/Ankle: 5/5. Flex: HS: severe, Gastroc: moderate. Palpation: tender along lumbar spine, paraspinals, gluts, hip and down the ITBand. Special Test: painful in all motions in supine, sitting and standing. - Special Tests. L/S Slump test left side: Positive. L/S Slump test right side: Positive. L/S Left Straight Leg Raise: Positive. L/S Right Straight Leg Raise: Positive Plan Plan: 08/11/21: Return to MD for further evaluation due to lack of progress. *f/u with supervising PT next. Progressing to I pool program in personal pool, however, would recommend continued AT at this time with slow transition to land d/t elevated pains recently. *Add Step downs next. AQUATIC THERAPY FOR PAIN RELEIF, POSTURE CORRECTION/STRENGTHENING, INSTRUCTION IN APPROPRIATE BODY MECHANICS AND ACTIVITY MODIFICATIONS. DLS STARTING WITH A NEUTRAL SPINE PROGRESSING ROM TOLERATED. ANNA LE ROM, STRETCHING AND STRENGTHENING. HEP INSTRUCTION. Balance/Gait/Functional tests - Balance/Special Test Scores Oswestry Low Back Score: 29 Goals Goal 1:: Patient will be I with HEP and progression Goal Time Frame: 4-6 Weeks Goal Progress: Goal Met Goal 2:: Patient will maintain proper posture t/o tx session to demo increased core s/s Goal Time Frame: 4-6 Weeks Goal Progress: Not Progressing Goal 3:: Patient will ambulate >300 feet with a normalized gait pattern Goal Time Frame: 4-6 Weeks Goal Progress: Not Progressing Goal 4:: Patient will report no s/s with ADL's for 1 week Goal Time Frame: 4-6 Weeks Goal Progress: Not Progressing Goal 5:: Patient will sleep through the night for 1 week Goal Time Frame: 6-8 Weeks Goal Progress: Not Progressing Anticipated Interventions Patient/Client Instruction: Educate patient on: Benefits of Fitness Program Therapeutic Exercise to Include: Strength training, Endurance training, Balance training, Coordination, Agility training, Body mechanics, Postural training, Flexibilty training, Gait and locomotor training, Neuromotor development, In an aquatic setting, Dynamic Lumbar Stabilization, Scapular Strength/Stabilization For the Purpose of:: To improve muscle performance and motor function Please do not hesitate to contact me at [phone] by phone or if you have questions or concerns regarding this new plan of care! Sincerely, Gloria Casanova DPT
--- NOTE | 2022-01-12 07:35 | HP.PT.NRP ---
DONOVAN BURR was seen in my office for initial evaluation on 07/19/21. The following Plan of Care was established for this patient: Initial Frequency: 3x /Week Initial Duration: 4 Weeks Patient/Client Instruction: Educate patient on: Benefits of Fitness Program Therapeutic Exercise to Include: Strength training, Endurance training, Balance training, Coordination, Agility training, Body mechanics, Postural training, Flexibilty training, Gait and locomotor training, Neuromotor development, In an aquatic setting, Dynamic Lumbar Stabilization, Scapular Strength/Stabilization For the Purpose of:: To improve muscle performance and motor function This patient was last seen in our office . Pertinent comments regarding their Physical therapy will appear below: Patient has not attended physical therapy in over 30 days- appropriate to be discharged and return to the MD as needed. At this point I will be discontinuing this patient from physical therapy. I would be happy to see this patient again in the future if found appropriate by the physician. Thank you! Gloria Casanova, JUAN CARLOST Balance/Gait/Functional tests - Balance/Special Test Scores Oswestry Low Back Score: 29
== END 2021-08-11 19:00 | disposition home or self-care (01) ==
LOC: PT 09:30
PROVIDERS: PCP Family Medicine; Referring Provider Physician Assistant; Visit Provider Physician Assistant
DX: S39.012D Strain of muscle, fascia and tendon of lower back, subsequent encounter (principal); X58.XXXD Exposure to other specified factors, subsequent encounter
CPT/HCPCS: 97113; 97162; 97164; 97530

== ENCOUNTER → 2021-09-23 | Outpatient (CLI) | payer OTHER, SELFPAY ==
--- NOTE | 2021-09-23 13:17 | BI_ITS ---
MAMMOGRAPHY - BILATERAL DIAGNOSTIC REASON FOR EXAM: Female, 36 years old. Screening and complains of pain in the bilateral upper outer quadrants with areas of thickening. PERTINENT HISTORY: Grandmother with breast cancer. TECHNIQUE: Digital bilateral breast mirta (3D mammographic acquisition) in the CC and MLO projections. 2-D mediolateral oblique (MLO) and craniocaudad (CC) views of both breasts were obtained. CAD: Full Field Digital Mammography with Computer Added Detection was performed. COMPARISON: Diagnostic mammogram from 01/17/2017, 09/01/2016. FINDINGS: Breast Composition: The breasts are extremely dense, which lowers the sensitivity of mammography. There are no dominant masses or suspicious calcifications. No other significant abnormalities are identified. There has been no significant change since the prior study. BI/SCRN MAMM (CAD)W/MIRTA BILAT IMPRESSION: Stable bilateral diagnostic mammogram. Given patient''s complaints of bilateral breast pain with thickening and areas of clinical concern, additional imaging with ultrasound is recommended. ASSESSMENT CATEGORY: BIRADS Category 0: Incomplete. Need additional imaging evaluation. A letter regarding these results will be sent to the patient by the facility within 30 days. Approximately 10% of breast cancers are not detected by mammography. A normal mammogram should not delay biopsy of a clinically suspicious abnormality. Electronically Signed: Stevie Castro, at 11:23 EDT ,
== END | disposition home or self-care (01) ==
LOC: OPBI 13:14
PROVIDERS: PCP Family Medicine; Visit Provider Obstetrics & Gynecology
DX: Z12.31 Encounter for screening mammogram for malignant neoplasm of breast (principal); N64.4 Mastodynia
CPT/HCPCS: 77063; 77067

== ENCOUNTER → 2021-09-27 | Outpatient (CLI) | payer OTHER, SELFPAY ==
--- NOTE | 2021-09-27 08:32 | US_ITS ---
STUDY: ULTRASOUND BREAST - RIGHT REASON FOR EXAM: Female, 36 years old. Breast pain TECHNIQUE: Axial and longitudinal images of the RIGHT breast were performed with a high resolution ultrasound transducer. # OF IMAGES: 53 COMPARISON: Diagnostic mammogram 09/23/2021 FINDINGS: RIGHT Breast: Heterogeneous background echotexture. Multiple longitudinal and transverse ultrasound images of the upper outer quadrant of the right breast failed to demonstrate a discrete solid or cystic mass. Some dense breast parenchyma is noted.: IMPRESSION: Normal right breast ultrasound. ASSESSMENT CATEGORY: BIRADS Category 1: Negative. A letter regarding these results will be sent to the patient by the facility within 30 days. Electronically Signed: Alo Vidal MD at 13:21 EDT , STUDY: ULTRASOUND BREAST - LEFT REASON FOR EXAM: Female, 36 years old. Breast pain TECHNIQUE: Axial and longitudinal images of the LEFT breast were performed with a high resolution ultrasound transducer. # OF IMAGES: 53 COMPARISON: Diagnostic mammogram 09/23/2021 FINDINGS: LEFT Breast: Heterogeneous background echotexture. Multiple longitudinal and transverse ultrasound images of the upper outer quadrant left breast demonstrates some dense breast parenchyma with a 5 mm oval parallel circumscribed anechoic mass with posterior enhancement consistent with a cyst most consistent with fibrocystic change.: US/Breast Limited Unilateral IMPRESSION: Fibrocystic change ASSESSMENT CATEGORY: BIRADS Category 2: Benign. A letter regarding these results will be sent to the patient by the facility within 30 days. Electronically Signed: Alo Vidal MD at 13:22 EDT ,
== END | disposition home or self-care (01) ==
LOC: OPUS 08:29
PROVIDERS: PCP Family Medicine; Visit Provider Obstetrics & Gynecology
DX: N64.4 Mastodynia (principal)
CPT/HCPCS: 76642

== ENCOUNTER → 2021-10-05 | Outpatient (CLI) | payer OTHER, SELFPAY ==
--- NOTE | 2021-10-05 10:06 | STE_ITS ---
Reason For Study: Chest Pain Stress Results Protocol: Stress Echocardiogram-Virgil Maximum Predicted HR: 182 bpm Target HR: 155 bpm % Maximum Predicted HR: 93 % DurationHeart Rate Stage (mm:ss) (bpm) BP Comment Baseline 82 126/84Pt denies chest pain Stage 1 3:00 106 148/82Pt denies chest pain Stage 2 3:00 118 148/84Pt denies chest pain Stage 3 3:00 150 182/90Pt denies chest pain Stage 4 1:40 169 / Shortness of breath. Pt denies chest pain. Recovery 95 124/70Pt denies chest pain Stress Duration: 10:40 mm:ss Maximum Stress HR: 169 bpm METS: 13 Baseline Echocardiogram Findings Stress Echo Wall motion Data Resting WM Intermediate WM Stress WM Resting Wall Motion Wall Motion Stress All segments Normal. All segments Hyperkinetic. Ejection Fraction 65 %. Ejection Fraction 75 %. Stress Results Heart rate response: Technically adequate: Percent predicted maximal heart rate greater than 85% Blood pressure response: Normal resting blood pressure-appropriate response Cardiac rhythm: No obvious cardiac dysrhythmias Functional capacity: Good Stopped secondary to: Dyspnea. EKG Data Baseline ECG: Normal sinus. Peak exercise ECG: No obvious ECG changes. Symptoms with Stress No complaint of chest discomfort during exercise or recovery. ECHO/Stress Test Echo w/o Contrast Interpretation Summary Contrast injection performed Negative (adequate) stress echocardiogram Ordering Physician: Dioni Palacios Referring Physician: Dioni Palacios Performed By: Taniya Ruvalcaba, RDCS, RVT
== END | disposition home or self-care (01) ==
LOC: CVS 10:04
PROVIDERS: PCP Family Medicine; Referring Provider Internal Medicine Cardiovascular Disease; Visit Provider Internal Medicine Cardiovascular Disease
DX: R07.9 Chest pain, unspecified (principal)
CPT/HCPCS: 93017; 93350

== ENCOUNTER → 2021-11-09 | Outpatient (CLI) | payer OTHER, SELFPAY ==
--- NOTE | 2021-11-09 08:54 | RDU_ITS ---
Reason For Study: HTN Right Renal Artery Left Renal Artery Right renal artery ostium Left renal artery ostium 115.5/29.9 135.2/40.8 RSV/EDV. PSV/EDV. Right renal artery proximal Left renal artery proximal PSV/EDV 144/40.8 PSV/EDV. 75.9/22.9 . Right renal artery mid 133.6/48.1 Left renal artery mid 83.3/27.8 PSV/EDV. PSV/EDV . Right renal artery distal Left renal artery distal 82.7/27.5 120.6/40.3 PSV/EDV. PSV/EDV. Right Renal Parenchyma Left Renal Parenchyma Upper Pole Medula 30.5/10.8 Left upper pole medulla 28.2/9.8 PSV/EDV. PSV/EDV . Right upper pole medulla EDR 0.4 . Left upper pole medulla EDR 0.3 . Right upper pole medulla R.I. Left upper pole medulla R.I. 0.65 . 0.65 . UP Cortex 19/8.5 PSV/EDV. Upper Yfn Cortx 18.2/7.1 PSV/EDV. Left upper pole cortex EDR 0.4 . Right upper pole cortex EDR 0.4 . Left upper pole cortex R.I. 0.55 . Right upper pole cortex R.I. 0.61 . Left lower Pole medulla 23.9/7.9 Right lower Pole medulla 28/9.6 PSV/EDV . PSV/EDV . Left lower pole medulla EDR 0.3 . Right lower pole medulla EDR 0.3 . Left lower pole medulla R.I. 0.67 . Right lower pole medulla R.I. Lower Pole Cortx 16.5/6.7 PSV/EDV. 0.66 . Left lower pole cortex EDR 0.4 . Lower Pole Cortex 16.9/7.1 PSV/EDV. Left lower pole cortex R.I. 0.59 . Right lower pole cortex EDR 0.4 . Left Renal Hilar Right lower pole cortex R.I. 0.58 . LT Hilar avg 50.3/16.4 PSV/EDV . Right Renal Hilar Left hilar acceleration time 40 Right Hilar avg 58.5/20.1 PSV/EDV. m/sec. Right hilar acceleration time 40 Left Renal Dimensions m/sec. Left kidney size 9.96 cm . Right Renal Dimensions Left cortical dimension 1.15 cm . Right kidney size 9.60 cm . Right cortical dimension 1.24 cm . Aorta Proximal abdominal aorta 1.37 x 1.37 cm . Proximal abdominal aorta peak systolic velocity is 110.7 cm/sec . Distal abdominal aorta 1.25 x 1.29 cm . Distal abdominal aorta peak systolic velocity is 127.1 cm/sec . VL/Renal Artery Duplex Ultrasound Interpretation Summary Right renal artery velocities are normal with no evidence of stenosis Left renal artery velocities are normal with no evidence of stenosis The right kidney is normal in size. The left kidney is normal in size. The right renal vein is patent The left renal vein is patent Ordering Physician: Dioni Palacios Referring Physician: Bart Pandya Performed By: Elise Hampton RVT
== END | disposition home or self-care (01) ==
LOC: CVS 08:53
PROVIDERS: PCP Family Medicine; Referring Provider Internal Medicine Cardiovascular Disease; Visit Provider Internal Medicine Cardiovascular Disease
DX: R07.9 Chest pain, unspecified (principal); I47.1 Supraventricular tachycardia; I10 Essential (primary) hypertension; I49.3 Ventricular premature depolarization
CPT/HCPCS: 93975

== ENCOUNTER 2022-01-25 10:14 | Outpatient (RCR) | payer OTHER, SELFPAY | END 2022-01-25 10:16 | disposition home or self-care (01) | LOC: PT 10:14 | PROVIDERS: PCP Family Medicine; Visit Provider Family Medicine | DX: M51.27 Other intervertebral disc displacement, lumbosacral region (principal) ==

== ENCOUNTER → 2022-03-15 | Outpatient (CLI) | payer OTHER, SELFPAY ==
[2022-03-15 09:49] LABS: Mucous, Urine 0 SEEN /hpf (<or=2+); Red Blood Cells-Urine 0 SEEN /hpf (0-5)
[2022-03-15 12:21] LABS: Color, Urine Yellow (Yellow); Glucose, Dipstick Normal (Normal); Ketone-Dipstick Negative (Negative); Leukocyte Esterase-Dipstick 500 /ul (Negative); Nitrite-Dipstick Negative (Negative); Occult Blood-Urine Negative /ul (Negative); Protein-Dipstick 15 mg/dl (Negative); Specific Gravity, Urine 1.005 (1.002-1.030); Urine Bilirubin Dipstick Negative (Negative); Urine Clarity Clear (Clear); Urine Urobilinogen Normal (Normal)
[2022-03-15 12:29] LABS: Bacteria 2+ /hpf (None Seen); Squamous Epithelial Cells - UA 5-10 SEEN /hpf (5-10); White Blood Cells 25-50 SEEN /hpf (0-5)
[2022-03-15 12:35] LABS: Absolute Lymphocyte Count 2.86 X10^3/uL (0.83-4.51); Absolute Neutrophil Count 5.6 X10^3/uL (2.0-7.7); Basophil# 0.04 X10^3/uL; Basophil% 0.4 % (0-1); Eosinophil# 0.09 X10^3/uL; Hemoglobin 13.9 g/dL (12.0-15.0); Lymphocyte # 2.86 X10^3/ul (0.83-4.51); Lymphocyte % 31.2 % (19-41); Mean Corp Hgb Conc 33.1 g/dL (32-36); Mean Corpuscular Hgb 30.2 pg (27.0-32.0); Mean Corpuscular Volume 91.3 fL (81-99); Mean Platelet Vol. 11.2 fl (6.2-12.0); Monocyte# 0.56 X10^3/uL; Monocyte% 6.1 % (0-10); NRBC Flagged by Analyzer 0 % (0-5); Neutrophil # 5.59 X10^3/uL (2.7-7.7); Neutrophil % 61.1 % (47-70); Platelet Count 352 K/mm3 (150-450); RBC Distribution Width CV 12.5 % (11.6-14.6); RBC Distribution Width SD 41.6 fl (35.1-43.9); White Blood Count 9.2 K/mm3 (4.4-11.0)
[2022-03-15 12:55] LABS: ALB/GLOB Ratio 0.8 RATIO (0.9-2.4); AST(SGOT) 17 U/L (15-37); Alanine Aminotransfer ALT/SGPT 24 U/L (13-56); Albumin, Serum 3.6 g/dL (3.2-5.0); Alkaline Phosphatase 61 U/L (45-117); Anion Gap 11 (5-15); BUN 15 mg/dL (7-18); BUN/Creat Ratio 17.4 RATIO (10-20); Calcium,Total 9.6 mg/dL (8.5-10.1); Chloride 101 mmol/L (98-107); Cholesterol 262 mg/dL (200); Creatinine, Serum 0.86 mg/dL (0.55-1.02); EST Glomerular Filtration Rate 78 mL/min (>60); Est Glom Filt Rate - Afr Amer 95 mL/min (>60); Globulin 4.3 g/dL (2.2-4.2); Glucose 82 mg/dL (74-106); High Density Lipoprotein 107 mg/dL; Potassium 3.8 mmol/L (3.5-5.1); Protein, Total 7.9 g/dL (6.4-8.2); Sodium Level 138 mmol/L (136-145); Thyroid Stim Hormone (TSH) 1.57 uIU/mL (0.358-3.74); Triglycerides 127 mg/dL; Very Low Density Lipoprotein 25 mg/dL (5-40)
== END | disposition home or self-care (01) ==
LOC: MFPLAB 09:44
PROVIDERS: PCP Family Medicine; Referring Provider Family Medicine; Visit Provider Family Medicine
DX: I10 Essential (primary) hypertension (principal)
CPT/HCPCS: 36415; 80053; 80061; 81001; 84443; 85025

== ENCOUNTER 2022-05-18 10:00 | Outpatient (RCR) | payer OTHER, SELFPAY ==
--- NOTE | 2022-01-19 11:47 | HP.PTEVAL_ITS ---
Patient's Visit Information DONOVAN CHENGROSCOE is a 36 year old F referred to Physical Therapy by HANNAH Cueto with a diagnosis of L and central L5/S1 discectomy and microscopic L and central laminectomies. Date of Evaluation: 01/18/22 Physical Therapist: Baltazar Pittman DPT - Visit Plan Frequency: 2-3x /Week Duration: 6 Weeks Plan: Start with gentle exercises to reduce symptoms (pt. did well with gentle SKTC), Add in neutral spine core stability. Able to wean from brace by 3 weeks and gentle lumbar ROM after that point in time. hooklying SKTC gentle 10x10- reduced LLE pain. supine TA 3x10x5. + UE into mat 3x10. above given as HEP 01/18/22 - Subjective Pt. is here today for her initial evaluation with diagnosis of L and central L5/S1 discectomy and microscopic L and central laminectomies of L5/S1 with partial facetectomy. DOS: 12/19/21. Pt. reports initially doing well, but over the past 2 weeks has noticed increased pain in her back and down her L LE to her foot. Pt. reports 5/10 pain today in back and leg. She reports being consistent with use of brace and not bend/twisting/lifting. Pt. reports sitting is the worst position, standing and walking is slightly better, but her best position is leaning slightly fwrd onto a table or wall. She reports some mild N/T in her L leg as well. No changes in B/B. Pt. is able to sleep a little bit on her sides, but lying on her back is tough. Slightly better with both knees bent. Pt. reports no sudden weakness in her LLE. Symptoms did start earlier this year after picking up a swim bag. She did do chiro, Pt and injections without marked results. Pt. is hopeful to reduce symptoms and get back to all work activities without limitations. 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 - Pain Lumbar spine Pain Intensity (Out of 10): 5 Pain Intensity Range: 2, 8 L leg Pain Intensity (Out of 10): 4 Pain Intensity Range: 2, 7 - Objective POSTURE: Pt. is able to stand with fairly normal posture, but does have increased pain when doing so. Normal NIRAV. PALPATION: Pt. has tender along incision. Incision looks very good. No signs of infection. NEURO: Pt. has nicole DTR of BLEs. Pt. does have decreased sensation in her L distal LE, but reports this is from previous surgery. ROM: Lumbar spine: mod loss in all directions. Limited secondary to pain, no forceful movements. Pt. has tight B HS as well. MMT: PT. has 5/5 strength in B ankles and knee musculature without increase in symptoms. B Hip strength- 4/5. Core strength- poor+, She is able to have good TA contraction without increase in symptoms. GAIT: Pt. ambulates with guarded posture, she does have some arm swing but minimal. Pt. reports not as much pain with walking compared to sitting and statically standing. STAIRS: Pt. is able to complete with reciprocal pattern, but does have some pain with L LE WBing. - Balance/Special Test Scores Oswestry Low Back Score: 36 - Goals Goal 1:: LTG: Pt. to be I with HEP for core stability and ROM. Goal Time Frame: 4-6 Weeks Goal 2:: STG: Pt. to sleep throughout the night without increase in symptoms. Goal Time Frame: 2-4 Weeks Goal 3:: STG: Pt. to be able to stand and walk for 5 min without increase in symptoms. Goal Time Frame: 2-4 Weeks Goal 4:: LTG: Pt. to be able to ambulate unlimited distances without increase in in lumbar or LLE pain. Goal Time Frame: 4-6 Weeks Goal 5:: LTG: Pt. to have full ROM of lumbar spine without increase in symptoms. Goal Time Frame: 4-6 Weeks - Rehabilitation Potential Physical Therapy Diagnosis: Pt. has signs and symptoms consistent with L and central L5/S1 discectomy and microscopic L and central laminectomies of L5/S1 with partial facetectomy. Pt. has some initial relief, but over the past week or so has been having increased pain in her back and her LLE. Pt. would benefit from PT to initially reduce symptoms with modalities and some stretching, progressing to core stability and weaning from brace as tolerated. Rehabilitation Potential: Excellent - Anticipated Interventions Patient/Client Instruction: Educate patient on: Condition, Plan of Care, Risk Factors, Benefits of Fitness Program For the Purpose of:: To foster healthy habits, To improve decision making, To facilitate caregiver knowledge, To improve self management, To prevent re- injury, To improve ability to perform tasks related to life management Therapeutic Exercise to Include: Strength training, Power training, Agility training, Body mechanics, Postural training, Flexibilty training, Active ROM, Dynamic Lumbar Stabilization For the Purpose of:: To decrease pain, To increase ROM, To improve nutrient delivery to tissue, To increase oxygenation perfusion, To improve muscle performance and motor function, To improve ability to perform ADL's, To improve health of tissue, To decrease soft tissue restriction, To increase flexibility/ROM Thank you for the opportunity to evaluate your patient. For Medicare and Medicare HMO plans, please review the plan of care and approve it. It will need to be FAXED BACK to us at [phone] for Medicare purposes. For Medicare only, by signing this I certify the plan of care. Please let me know if there are questions or concerns regarding this plan of care. Physician Signature: Date:
--- NOTE | 2022-02-16 13:11 | HP.PTREVAL ---
Kathy Lincoln, TELEHEALTH NURSE EDUCATOR-C, It has been my pleasure to treat DONOVAN BURR over the last 8 visits for L and central L5/S1 discectomy and microscopic L and central laminectomies. Please see the progress note below for an update on the physical therapy plan of care! Subjective: Pt. reports having good improvement for the past 2 weeks. She reports having 2/10 pain in her low back, but no pain down either LE. Pt. reports being 50% better overall and is trending in the right direction. Objective/Function: ROM: LUMBAR SPINE: flexion min loss tight, extension mod/max loss increase NW, SB R min loss increase NW, SB L nil loss NE, rotation min loss bilat mild increase NW. No radicular symptoms noted with all measurements. MMT: 5/5 throughout distal LEs. Pt. has poor+ core strength. GAIT: Pt. is walking much better, improved arm swing and improved stride length noted. She reports feeling much better with walking. STAIRS: normal movement with 1 HR with reciprocal pattern. Plan Plan: I am recerting patient for another 4 weeks with focus on core stability and general ROM. Progress to planking and isometric strengthening as tolerated. Pt. to progress walking program as well. Balance/Gait/Functional tests - Balance/Special Test Scores Oswestry Low Back Score: 18 Goals Goal 1:: LTG: Pt. to be I with HEP for core stability and ROM. Goal Time Frame: 4-6 Weeks Goal Progress: Progressing Goal 2:: STG: Pt. to sleep throughout the night without increase in symptoms. Goal Time Frame: 2-4 Weeks Goal Progress: Goal Met Goal 3:: STG: Pt. to be able to stand and walk for 5 min without increase in symptoms. Goal Time Frame: 2-4 Weeks Goal Progress: Goal Met Goal 4:: LTG: Pt. to be able to ambulate unlimited distances without increase in in lumbar or LLE pain. Goal Time Frame: 4-6 Weeks Goal Progress: Progressing Goal 5:: LTG: Pt. to have full ROM of lumbar spine without increase in symptoms. Goal Time Frame: 4-6 Weeks Goal Progress: Progressing Goal 6:: LTG: PT. to have fair+ core strength in order to reduce stress applied to lumbar spine with all work and recreational activities. Goal Time Frame: 4-6 Weeks Anticipated Interventions Patient/Client Instruction: Educate patient on: Condition, Plan of Care, Risk Factors, Benefits of Fitness Program For the Purpose of:: To foster healthy habits, To improve decision making, To facilitate caregiver knowledge, To improve self management, To prevent re-injury, To improve ability to perform tasks related to life management Therapeutic Exercise to Include: Strength training, Power training, Agility training, Body mechanics, Postural training, Flexibilty training, Active ROM, Dynamic Lumbar Stabilization For the Purpose of:: To decrease pain, To increase ROM, To improve nutrient delivery to tissue, To increase oxygenation perfusion, To improve muscle performance and motor function, To improve ability to perform ADL's, To improve health of tissue, To decrease soft tissue restriction, To increase flexibility/ROM Please do not hesitate to contact me at [phone] by phone or if you have questions or concerns regarding this new plan of care! Sincerely, Baltazar Pittman DPT
--- NOTE | 2022-04-26 10:08 | HP.PTREVAL_ITS ---
Kathy Lincoln, MORPHOLOGIST-C, It has been my pleasure to treat DONOVAN BURR over the last 23 visits for L and central L5/S1 discectomy and microscopic L and central laminectomies. Please see the progress note below for an update on the physical therapy plan of care! Subjective: Pt. reports overall being 80% better. Pt. reports feeling better today 1/10 pain on L side at L5 region. 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 No longer having any leg pain. Objective/Function: ROM: lumbar spine: flexion min loss increase NW, ext mod loss increase NW, SB min loss bilat increase NW to the L, rotaiton min loss NE bilat. Good HS length, mild tightness in B hip flexors. MMT: BLEs 5/5 throughout, except hip abd 5-/5, hip ext 5-/5. Core strength fair, trunk extension fair. GAIT: Pt. has normal gait pattern with out gaurding ot increase in symptoms. STAIRS: normal. I would like Donovan to have a bit better ROM and her pain consistently reduced with all of her work and recreational activities. She is progressing with planks and stability exercises. I also want her to work on multifidus strengthening Plan Plan: Cont. with PT with focus on increased multifidus strengthen, core stability, and gentle ROM for HEP. Balance/Gait/Functional tests - Balance/Special Test Scores Oswestry Low Back Score: 18 Goals Goal 1:: LTG: Pt. to be I with HEP for core stability and ROM. Goal Time Frame: 4-6 Weeks Goal Progress: Progressing Goal 2:: STG: Pt. to sleep throughout the night without increase in symptoms. Goal Time Frame: 2-4 Weeks Goal Progress: Goal Met Goal 3:: STG: Pt. to be able to stand and walk for 5 min without increase in symptoms. Goal Time Frame: 2-4 Weeks Goal Progress: Goal Met Goal 4:: LTG: Pt. to be able to ambulate unlimited distances without increase in in lumbar or LLE pain. Goal Time Frame: 4-6 Weeks Goal Progress: Progressing Goal 5:: LTG: Pt. to have full ROM of lumbar spine without increase in symptoms. Goal Time Frame: 4-6 Weeks Goal Progress: Progressing Goal 6:: LTG: PT. to have fair+ core strength in order to reduce stress applied to lumbar spine with all work and recreational activities. Goal Time Frame: 4-6 Weeks Goal Progress: Progressing Anticipated Interventions Patient/Client Instruction: Educate patient on: Condition, Plan of Care, Risk Factors, Benefits of Fitness Program For the Purpose of:: To foster healthy habits, To improve decision making, To facilitate caregiver knowledge, To improve self management, To prevent re- injury, To improve ability to perform tasks related to life management Therapeutic Exercise to Include: Strength training, Power training, Agility training, Body mechanics, Postural training, Flexibilty training, Active ROM, Dynamic Lumbar Stabilization For the Purpose of:: To decrease pain, To increase ROM, To improve nutrient delivery to tissue, To increase oxygenation perfusion, To improve muscle performance and motor function, To improve ability to perform ADL's, To improve health of tissue, To decrease soft tissue restriction, To increase flexibility/ROM Please do not hesitate to contact me at [phone] by phone or if you have questions or concerns regarding this new plan of care! Sincerely, Baltazar Pittman DPT
== END 2022-05-18 19:00 | disposition home or self-care (01) ==
LOC: PT 10:00
PROVIDERS: PCP Family Medicine; Referring Provider Nurse Practitioner Acute Care; Visit Provider Nurse Practitioner Acute Care
DX: M51.27 Other intervertebral disc displacement, lumbosacral region (principal)
CPT/HCPCS: 97014; 97035; 97110; 97161; 97164; G0283

== ENCOUNTER → 2023-08-17 | Outpatient (CLI) | payer OTHER, SELFPAY ==
[2023-08-17 17:32] LABS: Absolute Lymphocyte Count 2.36 X10^3/uL (0.83-4.51); Basophil# 0.04 X10^3/uL; Basophil% 0.4 % (0-1); Eosinophil# 0.11 X10^3/uL; Eosinophils% 1.1 % (0-5); Hematocrit 41.4 % (37-47); Hemoglobin 13.6 g/dL (12.0-15.0); Lymphocyte # 2.36 X10^3/ul (0.83-4.51); Lymphocyte % 23.6 % (19-41); Mean Corp Hgb Conc 32.9 g/dL (32-36); Mean Corpuscular Hgb 29.8 pg (27.0-32.0); Mean Corpuscular Volume 90.6 fL (81-99); Mean Platelet Vol. 11.2 fl (6.2-12.0); Monocyte# 0.44 X10^3/uL; Monocyte% 4.4 % (0-10); NRBC Flagged by Analyzer 0 % (0-5); Neutrophil # 6.99 X10^3/uL (2.7-7.7); Neutrophil % 70.1 % (47-70); Platelet Count 347 K/mm3 (150-450); RBC Distribution Width CV 13.2 % (11.6-14.6); RBC Distribution Width SD 43.9 fl (35.1-43.9); Red Blood Count 4.57 M/mm3 (4.2-5.4)
[2023-08-17 18:00] LABS: Vitamin D,25 Hydroxy 43.6 ng/mL
[2023-08-17 18:11] LABS: ALB/GLOB Ratio 0.8 RATIO (0.9-2.4); AST(SGOT) 10 U/L (15-37); Alanine Aminotransfer ALT/SGPT 16 U/L (13-56); Albumin, Serum 3.5 g/dL (3.2-5.0); Alkaline Phosphatase 73 U/L (45-117); Anion Gap 9 (5-15); BUN 16 mg/dL (7-18); BUN/Creat Ratio 16.8 RATIO (10-20); Calcium,Total 9.5 mg/dL (8.5-10.1); Chloride 103 mmol/L (98-107); Cholesterol 247 mg/dL (200); Creatinine, Serum 0.95 mg/dL (0.55-1.02); EST Glomerular Filtration Rate 69 mL/min (>60); Est Glom Filt Rate - Afr Amer 84 mL/min (>60); Globulin 4.2 g/dL (2.2-4.2); Glucose 118 mg/dL (74-106); High Density Lipoprotein 102 mg/dL; Protein, Total 7.7 g/dL (6.4-8.2); Sodium Level 136 mmol/L (136-145); Thyroid Stim Hormone (TSH) 1.35 uIU/mL (0.358-3.74); Triglycerides 149 mg/dL; Very Low Density Lipoprotein 30 mg/dL (5-40)
== END | disposition home or self-care (01) ==
LOC: MTLAB 16:10
PROVIDERS: PCP Family Medicine; Referring Provider Family Medicine; Visit Provider Family Medicine
DX: I10 Essential (primary) hypertension (principal); F41.9 Anxiety disorder, unspecified
CPT/HCPCS: 36415; 80053; 80061; 82306; 84443; 85025

== ENCOUNTER 2023-12-18 14:30 | Outpatient (RCR) | payer OTHER, SELFPAY ==
--- NOTE | 2023-12-07 13:54 | HP.PTEVAL ---
Patient's Visit Information Visit Information Visit Information: DONOVAN BURR is a 38 year old F referred to Physical Therapy by HANNAH Byrnes with a diagnosis of . Date of Evaluation: Physical Therapist: Anibal Streeter PT, Cert MDT, OCS Anticipated Interventions Text: Thank you for the opportunity to evaluate your patient. For Medicare and Medicare HMO plans, please review the plan of care and approve it. It will need to be FAXED BACK to us at [phone] for Medicare purposes. For Medicare only, by signing this I certify the plan of care. Please let me know if there are questions or concerns regarding this plan of care. Physician Signature: Date:
--- NOTE | 2023-12-07 16:17 | HP.PTEVAL ---
Patient's Visit Information Visit Information Visit Information: DONOVAN BURR is a 38 year old F referred to Physical Therapy by Tricia Price NP-C with a diagnosis of HERNIATION OF INTERVERTEBRAL DISC BETWEEN L5--S1. Date of Evaluation: 12/07/23 Physical Therapist: Anibal Streeter, PT, Cert MDT, OCS Visit Plan Frequency: 2x /Week Duration: 4 Weeks Plan: S/P LUMBAR DISCECTOMY 12/19/21 MAY NEED MRI IF DOESN'T GET BETTER PT INTERVENTIONS INITIALLY MODALITIES FOR PAIN ,PROGRESS TO TRAIL ZANDER EX'S ,POSTURAL EX'S AND LE FLEXABILITY Subjective Subjective: This 38 y/o female presents to physical therapy with HNP disc L5-S1 . Patient initially had s/p L5-S1 discectomy and laminectomy on 12/19/[address] Fall at [facility] . Patient doing okay after surgery had extended PT but symptoms never got total better . Then ~ 3 weeks pain worse right lumbar > left with radicular symptoms buttocks to hamstrings to calfs. Patient has symptoms described as burning and paresthesia/tingling to foot. Patient seen x-rays -. Patient was provided with steroid pack( prednisone). PA do therapy before MRI .Aggregating sitting worse ,bending ,lifting ,extended standing and walking. Alleviating ice. Pain affects sleeping . Bowel/bladder-.Coughing/sneezing-. Patient symptoms affects QOL /function and housework tasks. Patient goals to decrease symptoms pain adn MRI. SOCIAL : 2 children VOCATION: [employer] Pain Bilateral: Pain Intensity (Out of 10): 7 Pain Intensity Range: 10 Comment: LBP Bilateral Lower Extremity: Pain Intensity (Out of 10): 5 Pain Intensity Range: 10 Objective Objective: POSTURE: mild forward posture GAIT: reciprocal pattern NEURO: c/o paresthesia/tingling in left leg and burning in back ,reflexes L3-4,L4-5 ,L5-S1 2/3 LUMBAR ROM: flexion min loss ,extension mod loss pain ,side glides mod loss pain right side MMT: quads/hams 4/5 ,hip flexion 3+/5 right ,left 4-/5 ,ankle 4/5 PALAPTION: unremarkable Special Tests L/S Slump test left side: Negative L/S Left Straight Leg Raise: Negative L/S Right Straight Leg Raise: Negative Lumbar Standing: Flexion - Mechanical Response: No effect Lumbar Standing: Flexion - Symptoms During Testing: Increases Lumbar Standing: Flexion - Symptoms After Testing: Worse Lumbar Standing: Extension - Mechanical Response: No effect Lumbar Standing: Extension - Symptoms During Testing: Centralizing Lumbar Standing: Extension - Symptoms After Testing: No better Lumbar Standing: Right Side Glides - Mechanical Response: No effect Lumbar Standing: Right Side Alderson - Symptoms During Testing: No effect Lumbar Standing: Right Side [place] - Symptoms After Testing: No effect Lumbar Standing: Left Side [place] - Mechanical Response: No effect Lumbar Standing: Left Side [place] - Symptoms During Testing: No effect Lumbar Standing: Left Side [place] - Symptoms After Testing: No effect Lumbar Lying: Flexion - Mechanical Response: No effect Lumbar Lying: Flexion - Symptoms During Testing: Increases Lumbar Lying: Flexion - Symptoms After Testing: No worse Lumbar Lying: Extension - Mechanical Response: No effect Lumbar Lying: Extension - Symptoms During Testing: Centralizing Lumbar Lying: Extension - Symptoms After Testing: No better Balance/Special Test Scores Oswestry Low Back Score: 28 Goals Goal 1:: Patient to be I with HEP and lumbar Goal Time Frame: 4-6 Weeks Goal 2:: Patient to improve lumbar ROM for function of recovery for ADLS Goal Time Frame: 4-6 Weeks Goal 3:: Patient to normalize gait pattern with less antalgic gait right side Goal Time Frame: 4-6 Weeks Goal 4:: Patient to improve lumbar oswestry score by 3-5 points to improve function Goal Time Frame: 4-6 Weeks Goal 5:: Patient to improve hip strength to good for gait Goal Time Frame: 4-6 Weeks Goal 6:: Patient to sit 80% of the time to improve function Goal Time Frame: 4-6 Weeks Rehabilitation Potential Physical Therapy Diagnosis: This patient has h/o s/p lumbar discectomy with impression with HNP with decrease ROM ,weakness Right leg ,decrease gait and pain with positioning and motion thus benefit from skilled Rehabilitation Potential: Fair Anticipated Interventions Patient/Client Instruction: Educate patient on: Condition and Plan of Care For the Purpose of:: To decrease pain, To increase ROM, To improve muscle performance and motor function, To improve ability to perform ADL's, To increase tolerance to activity/condition/position, To improve ability of physical actions for home/community/work/leisure, To improve gait and locomotor functions, To improve health of tissue, To decrease soft tissue restriction, To increase flexibility/ROM, To reduce risk of recurrence, To prevent re-injury and To improve tolerance to ADL's Therapeutic Exercise to Include: Strength training, Postural training, Flexibilty training, Dynamic Lumbar Stabilization and Zander Exercises For the Purpose of:: To decrease pain, To increase ROM, To improve muscle performance and motor function, To increase tolerance to activity/condition/position, To improve ability of physical actions for home/community/work/leisure, To increase flexibility/ROM and To improve tolerance to ADL's TENS: Yes IF ES: Yes Cryotherapy (ice pack, ice massage): Yes Thermo therapy (hot pack): Yes Ultrasound (thermal/non thermal): Yes For the Purpose of:: To decrease pain, To increase ROM, To improve health of tissue and To decrease soft tissue restriction Text: Thank you for the opportunity to evaluate your patient. For Medicare and Medicare HMO plans, please review the plan of care and approve it. It will need to be FAXED BACK to us at [phone] for Medicare purposes. For Medicare only, by signing this I certify the plan of care. Please let me know if there are questions or concerns regarding this plan of care. Physician Signature: Date:
== END 2023-12-18 19:00 | disposition home or self-care (01) ==
LOC: PT 14:30
PROVIDERS: PCP Family Medicine; Referring Provider Nurse Practitioner; Visit Provider Nurse Practitioner
DX: M51.27 Other intervertebral disc displacement, lumbosacral region (principal)
CPT/HCPCS: 97014; 97035; 97162; G0283

== ENCOUNTER → 2024-12-30 | Outpatient (CLI) | payer OTHER, SELFPAY ==
[2024-12-30 18:34] LABS: Creatinine, Urine (random) 84.60 mg/dL (28.00-217.00); Microalbumin,Random Urine < 12.0 mg/L (<20 mg/L)
[2024-12-30 18:39] LABS: AST(SGOT) 16 U/L (<=31); Alanine Aminotransfer ALT/SGPT 12 U/L (<=34); Albumin, Serum 4.3 g/dL (3.5-5.0); Alkaline Phosphatase 58 U/L (35-104); Anion Gap 15 (5-15); BUN 16 mg/dL (4-19); BUN/Creat Ratio 18.3 RATIO (10-20); Calcium,Total 9.7 mg/dL (7.6-11.0); Carbon Dioxide 22.4 mmol/L (21.0-32.0); Chloride 100 mmol/L (98-108); Cholesterol 247 mg/dL (<=200); Globulin 3.0 g/dL (2.2-4.2); Glucose 78 mg/dL (70-99); Low Density Lipoprotein Calc. 122 mg/dL; Potassium 3.8 mmol/L (3.3-5.1); Triglycerides 124 mg/dL; Very Low Density Lipoprotein 25 mg/dL (5-40); cholesterol:hdl ratio screen 2.38
== END | disposition home or self-care (01) ==
LOC: MTLAB 16:02
PROVIDERS: PCP Family Medicine; Referring Provider Nurse Practitioner Family; Visit Provider Nurse Practitioner Family
DX: Z00.00 Encounter for general adult medical examination without abnormal findings (principal); I10 Essential (primary) hypertension; Z13.1 Encounter for screening for diabetes mellitus; Z13.220 Encounter for screening for lipoid disorders
CPT/HCPCS: 36415; 80053; 80061; 82043; 82570